=== PATIENT | female | born 1935 | race Caucasian/White ===

== ENCOUNTER 2018-09-24 10:54 | Inpatient (IN) | payer MEDICARE, BC ==
[2018-09-24] MEDS ORDERED: MORPHINE SULFATE 10 MG/ML INJ IV ONE (11:14)
--- NOTE | 2018-09-24 11:42 | ER Document Report ---
ED Hip Pain/Injury - General Chief Complaint: Hip Pain Stated Complaint: LEG PAIN Time Seen by Provider: 09/24/18 11:05 Primary Care Provider: YOGI FERREIRA PA-C [NO LOCAL MD] - Follow up as needed TRAVEL OUTSIDE OF THE [place] IN LAST 30 DAYS: No - HPI Notes: Patient is a 82-year-old female that presents to the emergency department for chief complaint of right hip pain after a fall. HPI provided by patient's daughter who is at bedside. Patient has vascular dementia and is a poor historian. 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 Patient has been having issues with ambulation and really can only stand and pivot with assistance. She has had 2 falls recently. Yesterday patient's daughter states she found her lying on the floor next to her bed. She did not have any apparent head injury or complaints of headache or vision changes. Patient was complaining of pain in her right hip and pelvic region. Daughter states she had x-rays that showed possibly acute on chronic right hip fracture. Daughter states she has no history of right hip fracture in the past. Patient has continued to have pain despite receiving Ultram last night. She was transferred to the ER today for further evaluation. Past Medical History: Vascular dementia, COPD, hypertension, GERD, history of intracranial hemorrhage Past Surgical History: Total hysterectomy Social History: Quit tobacco 30 years ago, denies alcohol use Family History: Reviewed and noncontributory for presenting illness Allergies: Reviewed, see documented allergy list. REVIEW OF SYSTEMS: CONSTITUTIONAL : No fever No chills No diaphoresis No recent illness EENT: No vision changes No congestion No sore throat CARDIOVASCULAR: No chest pain No palpitations RESPIRATORY: No shortness of breath No cough No difficulty breathing GASTROINTESTINAL: No abdominal pain No nausea No vomiting No diarrhea GENITOURINARY: No dysuria No hematuria No difficulty urinating MUSCULOSKELETAL: No back pain Right hip pain No arm pain SKIN: No rashes No lesions LYMPHATIC: No swollen, enlarged glands. NEUROLOGICAL: No lightheadedness No headache No weakness No paresthesias PSYCHIATRIC: No anxiety No depression PHYSICAL EXAMINATION: Vital signs reviewed, nursing noted reviewed. GENERAL: Well-appearing, well-nourished and in no acute distress. HEAD: Atraumatic, normocephalic. EYES: Eyes appear normal, extraocular movements intact, sclera anicteric, conjunctiva are normal. ENT: nares patent, oropharynx clear without exudates. Moist mucous membranes. NECK: Normal range of motion, supple without lymphadenopathy LUNGS: Breath sounds clear to auscultation bilaterally and equal. No wheezes rales or rhonchi. HEART: Regular rate and rhythm without murmurs ABDOMEN: Soft, nontender, normoactive bowel sounds. No rebound, guarding, or rigidity. No masses appreciated. EXTREMITIES: Pelvis stable, right hip tenderness to palpation and pain with range of motion and logroll, normal right knee and ankle exam, good range of motion, no pitting or edema. NEUROLOGICAL: No focal neurological deficits. Difficulty lifting right leg off the table secondary to pain. Normal sensation grossly. Normal strength and right dorsiflexion plantar flexion. Normal strength in left lower extremity. PSYCH: Normal mood, normal affect. SKIN: Warm, Dry, normal turgor, no rashes or lesions noted on exposed skin - Related Data Allergies/Adverse Reactions: No Known Allergies Allergy (Unverified 06/25/15 02:33) Past Medical History - Social History Smoking Status: Former Smoker Family History: Reviewed & Not Pertinent - Past Medical History Cardiac Medical History: Reports: Hx Hypertension Pulmonary Medical History: Reports: Hx COPD Traumatic Medical History: Reports: Hx Fractures - pelvic fx following a fall down steps in [place] Past Surgical History: Reports: Hx Hysterectomy - Immunizations Hx Pneumococcal Vaccination: 06/12/14 Physical Exam - Vital signs Vitals: Temp Pulse Resp BP Pulse Ox 97.7 F 70 16 160/56 H 93 09/24/18 11:08 09/24/18 11:08 09/24/18 11:08 09/24/18 11:08 09/24/18 11:08 Course - Re-evaluation Re-evalutation: 09/24/18 12:36 Vitals reviewed. Nursing notes reviewed. Patient's pain was improved after morphine. X-ray does show a subcapital right hip fracture. I discussed patient's fracture with Dr. To who will see her on consultation. Patient will be admitted to medicine for further management. Hip/Pelvis X-Ray 09/24/18 11:13 IMPRESSION: Subcapital fracture of the femoral neck. - Vital Signs Vital signs: Temp Pulse Resp BP Pulse Ox 97.7 F 70 16 160/56 H 93 09/24/18 11:08 09/24/18 11:08 09/24/18 11:08 09/24/18 11:08 09/24/18 11:08 - EKG Interpretation by Me Additional EKG results interpreted by me: 09/24/18 11:51 Interpreted by myself 1146: Normal sinus rhythm, rate 71, normal axis, no ectopy, no ST elevation Discharge - Discharge Clinical Impression: Subcapital fracture of hip Qualifiers: Encounter type: initial encounter Fracture type: closed Laterality: right Qualified Code(s): S72.011A - Unspecified intracapsular fracture of right femur, initial encounter for closed fracture Condition: Stable Disposition: ADMITTED INPATIENT Admitting Provider: Rafat (Hospitalist) Unit Admitted: Surgical Floor Referrals: YOGI FERREIRA PA-C [NO LOCAL MD] - Follow up as needed
--- NOTE | 2018-09-24 12:19 | RADIOLOGY REPORT (SQ) ---
EXAM DESCRIPTION: HIP RIGHT AP/LATERAL COMPLETED DATE/TIME: 09/24/2018 11:36 am REASON FOR STUDY: trauma COMPARISON: None. NUMBER OF VIEWS: Two views. TECHNIQUE: AP pelvis and additional frog-leg view of the right hip. LIMITATIONS: None. FINDINGS: MINERALIZATION: Normal. RIGHT HIP: There is an impacted subcapital fracture of the femoral neck. LEFT HIP: No fracture or dislocation. No worrisome bone lesions. PUBIS AND ISCHIUM: No fracture. PELVIS: No fracture. SACRUM: No fracture or dislocation. No worrisome bone lesions. LOWER LUMBAR SPINE: No fracture or dislocation. No worrisome bone lesions. No significant disc disea se. SOFT TISSUES: No findings. OTHER: No other significant finding. IMPRESSION: Subcapital fracture of the femoral neck. TECHNICAL DOCUMENTATION: JOB ID: [id number] [employer]- All Rights Reserved Reading location - IP/workstation name: [email or web address]
[2018-09-24 13:02] LABS: ABSOLUTE BASOPHILS # (AUTO) 0.1 10^3/uL (0.0-0.2); ABSOLUTE EOSINOPHILS # (AUTO) 0.2 10^3/uL (0.0-0.6); ABSOLUTE LYMPHOCYTES (AUTO) 1.4 10^3/uL (0.5-4.7); ABSOLUTE MONOCYTES (AUTO) 0.5 10^3/uL (0.1-1.4); ABSOLUTE NEUT (AUTO) 6.1 10^3/uL (1.7-8.2); BASOPHILS % (AUTO) 0.6 % (0-2); EOSINOPHILS % (AUTO) 2.9 % (0-6); HEMATOCRIT 35.4 % (36.0-47.0); HEMOGLOBIN 12.1 g/dL (12.0-15.5); LYMPHOCYTES % (AUTO) 16.8 % (13-45); MEAN CORPUSCULAR HEMOGLOBIN 30.8 pg (27.0-33.4); MEAN CORPUSCULAR HGB CONC 34.2 g/dL (32.0-36.0); MEAN CORPUSCULAR VOLUME 90 fl (80-97); MONOCYTES % (AUTO) 5.9 % (3-13); PLATELET COUNT 372 10^3/uL (150-450); RED BLOOD COUNT 3.93 10^6/uL (3.72-5.28); RED CELL DISTRIBUTION WIDTH 14.7 % (11.5-14.0); SEGMENTED NEUTROPHILS % (AUTO) 73.8 % (42-78); TOTAL CELLS COUNTED % (AUTO) 100 %; WHITE BLOOD COUNT 8.3 10^3/uL (4.0-10.5)
[2018-09-24] MEDS ORDERED: DEXTROSE 40% GEL 15 GM TUBE PO PRN ×2 (13:02)
[2018-09-24] MEDS ORDERED: DEXTROSE 50%-WATER 25 GM/50 ML DISP.SYRIN IV PRN ×2 (13:02)
[2018-09-24] MEDS ORDERED: GLUCAGON,HUMAN RECOMB 1 MG INJ SUBCUT PRN (13:02)
[2018-09-24 13:06] LABS: PROTHROMBIN TIME 13.7 SEC (11.4-15.4)
[2018-09-24] MEDS ORDERED: ALBUTEROL SULFATE 0.083% NEB 2.5 MG/3 ML AMPUL NEB PRN (13:08)
[2018-09-24] MEDS ORDERED: ALBUTEROL SULFATE HFA (90 MCG/PUFF) 200 PUFF/8.5 GM MDI IH PRN (13:08)
[2018-09-24] MEDS ORDERED: (PENDING PHARMACY ID) (Multivitamin [Multivitamins] 1 CAP) PO SCH (13:15)
[2018-09-24] MEDS ORDERED: BISACODYL PO SCH (13:15)
[2018-09-24] MEDS ORDERED: ATENOLOL PO SCH (13:15)
[2018-09-24 13:20] LABS: ANION GAP 9 (5-19); BLOOD UREA NITROGEN 22 mg/dL (7-20); CALCIUM 9.6 mg/dL (8.4-10.2); CARBON DIOXIDE 26 mmol/L (22-30); CHLORIDE 101 mmol/L (98-107); GLUCOSE 127 mg/dL (75-110); POTASSIUM 3.9 mmol/L (3.6-5.0); SODIUM 136.4 mmol/L (137-145)
--- NOTE | 2018-09-24 13:37 | PDOC H&P ---
History of Present Illness Admission Date/PCP: 09/24/18 12:41 ONI HERNANDEZ MD Patient complains of: History of fall and came with right hip fracture History of Present Illness: LEE ANN KHAN is a 82 year old female history of dementia,, hemorrhagic stroke, COPD came to the emergency room after multiple falls. She was found on the floor yesterday by . brought to the emergency room for further evaluation found to have a hip fracture. ER physician Dr. Witt discussed the case with Dr. To he agreed to do the ortho consult , requested hospitalist services to do the medical consult for admission. Went to see the pt and talk to the daughter who is at bedside she confirmed the history that patient has difficulty in ambulating after the strokes and had a couple of falls at [facility]. the daughter found her mom on the floor yesterday and brought to the emergency room here for further evaluation. In the ER wotk up shows right subcapital fracture of the femoral neck. Discussed the plan of care with the daughter she agreed her mom to be in the hospital for possible surgery. Patient is a DNR/DNI as per the family members. Patient denies any pain at the time of admission. Past Medical History Cardiac Medical History: Reports: Hypertension Pulmonary Medical History: Reports: Chronic Obstructive Pulmonary Disease (COPD) Neurological Medical History: Reports: Hemorrhagic CVA, Ischemic CVA Psychiatric Medical History: Reports: Dementia Past Surgical History Past Surgical History: Reports: Hysterectomy Social History Smoking Status: Former Smoker Frequency of Alcohol Use: Occasional Hx Recreational Drug Use: No Hx Prescription Drug Abuse: No - Advance Directive Resuscitation Status: Do Not Resuscitate Family History Family History: Reviewed & Not Pertinent Parental Family History Reviewed: Yes - father has a history of heart disease Children Family History Reviewed: Yes Sibling(s) Family History Reviewed.: Yes Medication/Allergy Home Medications: Albuterol Sulfate [Albuterol Sulfate 2.5mg/3 mL] 3 ml NEB Q6HP PRN 06/25/15 Albuterol Sulfate [Proair HFA] 2 puff IH PRN PRN 06/25/15 Atenolol 1 tab PO DAILY 06/25/15 Bisacodyl [Correctol] 1 tab PO Q2D 06/25/15 Budesonide/Formoterol Fumarate [Symbicort HFA 160-4.5 mcg Inhaler 6 gm] 1 puff IH QHS 06/25/15 Docusate Sodium [Colace 100 mg Capsule] 1 cap PO Q2D 06/25/15 Levocetirizine Dihydrochloride [Xyzal 5 mg Tablet] 1 tab PO QHS 06/25/15 Montelukast Sodium [Singulair 10 mg Tablet] 1 tab PO QHS 06/25/15 Multivitamin [Multivitamins] 1 cap PO DAILY 06/25/15 Omeprazole Magnesium [Prilosec Otc] 1 tab PO DAILY 06/25/15 Tiotropium [place] [Spiriva Handihaler 18 mcg/dose (30 Dose)] 1 inh IH DAILY 06/25/15 Azithromycin [Zithromax 250 mg Tablet] 500 mg PO DAILY #6 tab 06/27/15 Cefpodoxime Proxetil [Vantin 200 mg Tablet] 1 tab PO Q12 #20 tab 06/27/15 Prednisone [Deltasone 20 mg Tablet] 40 mg PO DAILY #12 tablet 06/27/15 Allergies/Adverse Reactions: No Known Allergies Allergy (Unverified 06/25/15 02:33) Review of Systems ROS unobtainable: Other - Most of the history obtained from the daughter at bedside. Constitutional: ABSENT: chills, fever(s), headache(s), weight gain, weight loss Eyes: ABSENT: visual disturbances Ears: ABSENT: hearing changes Cardiovascular: ABSENT: chest pain, dyspnea on exertion, edema, orthropnea, palpitations Respiratory: ABSENT: cough, hemoptysis Gastrointestinal: ABSENT: abdominal pain, constipation, diarrhea, hematemesis, hematochezia, nausea, vomiting Neurological: PRESENT: frequent falls. ABSENT: abnormal gait, abnormal speech, confusion, dizziness, focal weakness, syncope Psychiatric: ABSENT: anxiety, depression, homidical ideation, suicidal ideation Physical Exam Vital Signs: Temp Pulse Resp BP Pulse Ox 97.7 F 70 16 160/56 H 93 09/24/18 11:08 09/24/18 11:08 09/24/18 11:08 09/24/18 11:08 09/24/18 11:08 Intake & Output 09/23/18 09/24/18 09/25/18 06:59 06:59 06:59 Weight 122.5 kg General appearance: PRESENT: no acute distress Head exam: PRESENT: atraumatic Eye exam: PRESENT: PERRLA Mouth exam: PRESENT: moist, tongue midline Teeth exam: PRESENT: edentulous Neck exam: ABSENT: carotid bruit, JVD, lymphadenopathy, thyromegaly Respiratory exam: PRESENT: decreased breath sounds Cardiovascular exam: PRESENT: RRR. ABSENT: diastolic murmur, rubs, systolic murmur GI/Abdominal exam: PRESENT: normal bowel sounds, soft. ABSENT: distended, guarding, mass, organolmegaly, rebound, tenderness Extremities exam: PRESENT: full ROM. ABSENT: calf tenderness, clubbing, pedal edema Musculoskeletal exam: PRESENT: other - Patient is bedbound no hip rotation no shortening of the leg was seen. Neurological exam: PRESENT: alert, awake, oriented to person, oriented to place, oriented to time, oriented to situation, CN II-XII grossly intact. ABSENT: motor sensory deficit Psychiatric exam: PRESENT: appropriate affect, normal mood. ABSENT: homicidal ideation, suicidal ideation Results Laboratory Results: 09/24/18 12:29 09/24/18 12:29 WBC 8.3 RBC 3.93 Hgb 12.1 Hct 35.4 L MCV 90 MCH 30.8 MCHC 34.2 RDW 14.7 H Plt Count 372 Seg Neutrophils % 73.8 Lymphocytes % 16.8 Monocytes % 5.9 Eosinophils % 2.9 Basophils % 0.6 Absolute Neutrophils 6.1 Absolute Lymphocytes 1.4 Absolute Monocytes 0.5 Absolute Eosinophils 0.2 Absolute Basophils 0.1 Impressions: Hip/Pelvis X-Ray 09/24/18 11:13 IMPRESSION: Subcapital fracture of the femoral neck. Assessment and Plan - Diagnosis (1) Subcapital fracture of hip Qualifiers: Encounter type: initial encounter Fracture type: closed Laterality: right Qualified Code(s): S72.011A - Unspecified intracapsular fracture of right femur, initial encounter for closed fracture Is this a current diagnosis for this admission?: Yes Plan: 09/24/2016[age]-old female came from [facility] with history of fall and found to have a right hip fracture. Actually it is a subcapital fracture of the right femoral neck. Plan to put her on surgical floor as an inpatient. All the consult was requested. Started on IV morphine 1 mg every 4 as needed for pain. Patient is going to be bedbound. Started on GI prophylaxis. No DVT prophylaxis was initiated except for SCDs because of possible hip surgery either today or tomorrow. Patient CODE STATUS is DNR/DNI. Plan to restart her home medications. PT OT consult was requested social services counselor consult was requested for discharge planning. Patient EKG has sinus rhythm. Chest x-ray was pending, labs are pending. PT/INR is pending. Waiting for the labs and chest x-ray results are available before clearing the patient for surgery. (2) COPD (chronic obstructive pulmonary disease) Qualifiers: COPD type: unspecified COPD Qualified Code(s): J44.9 - Chronic obstructive pulmonary disease, unspecified Is this a current diagnosis for this admission?: No Plan: 09/24/2018-patient has history of COPD not on home oxygen pulse ox is 93% on room air. Plan to restart her home medications including albuterol inhaler albuterol nebulizations. (3) HTN (hypertension) Is this a current diagnosis for this admission?: No Plan: 09/24/2018-patient has history of hypertension she is on atenolol 1000 mg p.o. daily at home which was resumed during the hospital today. To start the patient on hydralazine 10 mg IV every 6 as needed. (4) Dementia Is this a current diagnosis for this admission?: No Plan: 09/24/2018-as per the family patient has a vascular dementia. Not on any dementia medications at snf. Plan is to closely monitor her mental sta tus during the hospital stay. (6) Alcohol use Is this a current diagnosis for this admission?: No Plan: 09/24/2018-patient's daughter given the history of hemorrhagic stroke and also ischemic stroke in the past. Recently patient was in [place] in the [facility] for massive hemorrhagic stroke. At that time she has right-sided weakness that weakness was resolved or. Of time. - Time Time Spent with patient: 25-34 minutes Medications reviewed and adjusted accordingly: Yes Anticipated discharge: SNF
--- NOTE | 2018-09-24 13:53 | ADVANCED CARE ---
- Diagnosis (1) Subcapital fracture of hip Diagnosis Current: Yes (2) COPD (chronic obstructive pulmonary disease) Diagnosis Current: No (3) HTN (hypertension) Diagnosis Current: No (4) Dementia Diagnosis Current: No (5) History of stroke Diagnosis Current: No (6) Alcohol use Diagnosis Current: No Resuscitation Status: Do Not Resuscitate Discussion: Discussed the plan of care with the daughter once patient is stable she is thinking about taking her mom home and she will provide the care at home. Care Planning Goals: Patient came in with a fall and dry. Hip fracture possible surgery while she was here once he is stable enough to be discharged she will go home on daughter will be there taking care of the patient will arrange for home health and physical therapy as an outpatient. Document(s) Completed: Patient is a DNR/DNI. Family brought to the documentation with them. Time Spent: Spent more than 20 minutes.
--- NOTE | 2018-09-24 14:47 | RADIOLOGY REPORT (SQ) ---
EXAM DESCRIPTION: CHEST SINGLE VIEW COMPLETED DATE/TIME: 09/24/2018 1:40 pm REASON FOR STUDY: shortness of breath COMPARISON: 06/27/2015 EXAM PARAMETERS: NUMBER OF VIEWS: One view. TECHNIQUE: Single frontal radiographic view of the chest acquired. RADIATION DOSE: NA LIMITATIONS: None. FINDINGS: LUNGS AND PLEURA: No opacities, masses or pneumothorax. No pleural effusion. MEDIASTINUM AND HILAR STRUCTURES: No masses. Contour normal. HEART AND VASCULAR STRUCTURES: Heart normal in size. Normal vasculature. BONES: No acute findings. HARDWARE: None in the chest. OTHER: No other significant finding. IMPRESSION: NO ACUTE RADIOGRAPHIC FINDING IN THE CHEST. TECHNICAL DOCUMENTATION: JOB ID: [id number] [employer]- All Rights Reserved Reading location - IP/workstation name: [email or web address]
[2018-09-24 15:13] LABS: APPEARANCE,URINE SLIGHTLY-CLOUDY; BILIRUBIN,URINE NEGATIVE (NEGATIVE); GLUCOSE, URINE NEGATIVE (NEGATIVE); KETONES,URINE NEGATIVE (NEGATIVE); LEUKOCYTE ESTERASE,URINE TRACE (NEGATIVE); NITRITE,URINE POSITIVE (NEGATIVE); PROTEIN,URINE NEGATIVE (NEGATIVE); URINE SPECIFIC GRAVITY 1.023; UROBILINOGEN,URINE NEGATIVE mg/dL (<2.0)
[2018-09-24 15:15] LABS: COLOR,URINE YELLOW
[2018-09-24] MEDS: MORPHINE SULFATE 10 MG/ML INJ IV PRN (16:48)
[2018-09-24] MEDS: ATENOLOL 50 MG TABLET PO SCH (16:50)
[2018-09-24] MEDS: FAMOTIDINE 20 MG TABLET PO SCH ×2 (16:50→21:59)
--- NOTE | 2018-09-24 20:04 | EKG REPORT ---
SEVERITY:- NORMAL ECG - SINUS RHYTHM : Confirmed by: Kiersten Copeland MD 24-Sep-2018 20:03:07
[2018-09-24] MEDS: CETIRIZINE 5 MG TABLET PO SCH (21:59)
[2018-09-24] MEDS: MONTELUKAST SODIUM 10 MG TABLET PO SCH (21:59)
[2018-09-24] MEDS: FLUTICASONE/VILANTEROL 200-25 MCG/DOSE IH SCH (22:00)
[2018-09-24] MEDS ORDERED: LEVOCETIRIZINE DIHYDROCHLORIDE PO SCH (22:00)
[2018-09-24] MEDS ORDERED: (PENDING PHARMACY ID) (Budesonide/Formoterol Fumarate 1 PUFF) IH SCH (22:00)
--- NOTE | 2018-09-25 06:43 | PDOC CONSULTATION ---
Consultation Consult Date: 09/25/18 Consult reason:: Right femoral neck fracture History of Present Illness Admission Date/PCP: 09/24/18 12:41 ONI HERNANDEZ MD History of Present Illness: LEE ANN KHAN is a 82 year old female Patient is an 82-year-old white female household ambulator who fell and sustained a right hip injury. She is brought to the emergency room where a right valgus impacted femoral neck fracture was identified radiographically. Patient is admitted to the hospital service and orthopedics consulted for fracture management. Past Medical History Cardiac Medical History: Reports: Hypertension Pulmonary Medical History: Reports: Chronic Obstructive Pulmonary Disease (COPD) Neurological Medical History: Reports: Hemorrhagic CVA, Ischemic CVA Psychiatric Medical History: Reports: Dementia Past Surgical History Past Surgical History: Reports: Hysterectomy Social History Information Source: Patient, [facility] Records Smoking Status: Former Smoker Frequency of Alcohol Use: Occasional Hx Recreational Drug Use: No Hx Prescription Drug Abuse: No - Advance Directive Resuscitation Status: Do Not Resuscitate Family History Family History: Reviewed & Not Pertinent Parental Family History Reviewed: No Children Family History Reviewed: No Sibling(s) Family History Reviewed.: No Medication/Allergy Home Medications: Acetaminophen [Tylenol 325 mg Tablet] 650 mg PO Q6HP PRN 09/24/18 Albuterol Sulfate [Ventolin 0.042% Neb 1.25 mg/3 ml Ampul] 1.25 mg NEB RTQ4HP PRN 09/24/18 Amlodipine Besylate [Norvasc 10 mg Tablet] 10 mg PO DAILY 09/24/18 Atenolol [Tenormin 50 mg Tablet] 50 mg PO Q12 09/24/18 Docusate Sodium [Colace 100 mg Capsule] 200 mg PO Q12 09/24/18 Fluticasone/Salmeterol [Advair 250-50 Diskus 14 Dose/Diskus] 1 inh IH Q12 09/24/18 Hydralazine HCl [Apresoline 10 mg Tablet] 20 mg PO Q8 09/24/18 Pantoprazole Sodium [Protonix [address] Tablet] 40 mg PO Q6AM 09/24/18 Polyethylene Glycol 3350 [Miralax Powder 17 gm/Packet] 1 packet PO Q12 09/24/18 Potassium Chloride [Klor-Con M10] 10 meq PO DAILY 09/24/18 Sennosides [Senna] 17.2 mg PO QHS 09/24/18 Tramadol HCl [Ultram 50 mg Tablet] 50 mg PO Q6HP PRN 09/24/18 Umeclidinium [place] [Incruse Ellipta] 1 puff IH DAILY 09/24/18 Allergies/Adverse Reactions: No Known Allergies Allergy (Unverified 06/25/15 02:33) Review of Systems ROS unobtainable: Due to mental status Physical Exam Vital Signs: Temp Pulse Resp BP Pulse Ox 36.6 C 63 18 150/60 H 95 09/24/18 23:59 09/24/18 23:59 09/24/18 23:59 09/24/18 23:59 09/25/18 04:00 Pulse Oximeter Continuous Start: 09/24/18 13:02 Freq: RTQ4 Status: Active Protocol: Document 09/25/18 04:00 [facility] (Rec: 09/25/18 04:12 [facility] [id number]) Pulse Oximetry Assessment Oxygen Saturation (92-100) 95 Oxygen Delivery Method Room Air Equipment Usage Equipment in Use Continuous Pulse Oximeter 24 Hour Charge Charge Now Continuous SpO2 Machine # 1 Intake & Output 09/23/18 09/24/18 09/25/18 06:59 06:59 06:59 Intake Total 110 Output Total 200 Balance -90 Weight 53.5 kg Physical Exam: The patient is an elderly white disheveled appearing female lying in hospital bed. She does respond to verbal stimuli but with inappropriate responses. General appearance: PRESENT: no acute distress, mild distress Head exam: PRESENT: normocephalic Respiratory exam: PRESENT: unlabored Cardiovascular exam: PRESENT: RRR Pulses: PRESENT: +1 pedal pulses bilateral Vascular exam: PRESENT: normal capillary refill GI/Abdominal exam: PRESENT: soft Rectal exam: PRESENT: deferred Extremities exam: PRESENT: other - Painful passive range of motion of right lower extremity. Leg lengths are equal. His brisk capillary refill. Neurological exam: PRESENT: awake Skin exam: PRESENT: dry, intact, warm. ABSENT: cyanosis, rash Results Laboratory Results: 09/24/18 12:29 09/24/18 12:29 09/24/18 09/24/18 09/24/18 12:29 12:29 14:37 WBC 8.3 RBC 3.93 Hgb 12.1 Hct 35.4 L MCV 90 MCH 30.8 MCHC 34.2 RDW 14.7 H Plt Count 372 Seg Neutrophils % 73.8 Lymphocytes % 16.8 Monocytes % 5.9 Eosinophils % 2.9 Basophils % 0.6 Absolute Neutrophils 6.1 Absolute Lymphocytes 1.4 Absolute Monocytes 0.5 Absolute Eosinophils 0.2 Absolute Basophils 0.1 Sodium 136.4 L Potassium 3.9 Chloride 101 Carbon Dioxide 26 Anion Gap 9 BUN 22 H Creatinine 0.59 Est GFR ( Amer) > 60 Est GFR (Non-Af Amer) > 60 Glucose 127 H Calcium 9.6 Urine Color YELLOW Urine Appearance SLIGHTLY-CLOUDY Urine pH 5.0 Ur Specific [place] 1.023 Urine Protein NEGATIVE Urine Glucose (UA) NEGATIVE Urine Ketones NEGATIVE Urine Blood NEGATIVE Urine Nitrite POSITIVE H Ur Leukocyte Esterase TRACE H Urine WBC (Auto) 57 Urine RBC (Auto) 116 Impressions: Chest X-Ray 09/24/18 00:00 IMPRESSION: NO ACUTE RADIOGRAPHIC FINDING IN THE CHEST. Hip/Pelvis X-Ray 09/24/18 11:13 IMPRESSION: Subcapital fracture of the femoral neck. Status: Imported from PACS Assessment & Plan - Diagnosis (1) Subcapital fracture of hip Qualifiers: Encounter type: initial encounter Fracture type: closed Laterality: right Qualified Code(s): S72.011A - Unspecified intracapsular fracture of right femur, initial encounter for closed fracture Is this a current diagnosis for this admission?: Yes Plan: 82-year-old white female with a right valgus impacted femoral neck fracture. I think the patient would best served with percutaneous pinning. This is a procedure that can be performed under local MAC anesthesia with minimal blood loss and less than 30 minutes. The patient will need to be protected in terms of weightbearing for 6 weeks thereafter. The patient has been placed on the operative schedule for MondaySeptember 26. - Time Time Spent: 50 to 70 Minutes Anticipated discharge: SNF Within: Other
[2018-09-25 07:13] LABS: ABSOLUTE BASOPHILS # (AUTO) 0.1 10^3/uL (0.0-0.2); ABSOLUTE EOSINOPHILS # (AUTO) 0.6 10^3/uL (0.0-0.6); ABSOLUTE LYMPHOCYTES (AUTO) 1.6 10^3/uL (0.5-4.7); ABSOLUTE MONOCYTES (AUTO) 0.6 10^3/uL (0.1-1.4); ABSOLUTE NEUT (AUTO) 5.4 10^3/uL (1.7-8.2); BASOPHILS % (AUTO) 0.8 % (0-2); EOSINOPHILS % (AUTO) 7.1 % (0-6); HEMATOCRIT 35.8 % (36.0-47.0); HEMOGLOBIN 12.1 g/dL (12.0-15.5); LYMPHOCYTES % (AUTO) 19.3 % (13-45); MEAN CORPUSCULAR HEMOGLOBIN 30.2 pg (27.0-33.4); MEAN CORPUSCULAR HGB CONC 33.9 g/dL (32.0-36.0); MEAN CORPUSCULAR VOLUME 89 fl (80-97); MONOCYTES % (AUTO) 7.9 % (3-13); PLATELET COUNT 352 10^3/uL (150-450); RED BLOOD COUNT 4.02 10^6/uL (3.72-5.28); RED CELL DISTRIBUTION WIDTH 14.7 % (11.5-14.0); SEGMENTED NEUTROPHILS % (AUTO) 64.9 % (42-78); TOTAL CELLS COUNTED % (AUTO) 100 %; WHITE BLOOD COUNT 8.3 10^3/uL (4.0-10.5)
[2018-09-25 07:43] LABS: ALANINE AMINOTRANSFERASE 16 U/L (9-52); ALBUMIN 3.5 g/dL (3.5-5.0); ALKALINE PHOSPHATASE 93 U/L (38-126); ANION GAP 7 (5-19); ASPARTATE AMINO TRANSFERASE 14 U/L (14-36); BILIRUBIN,DIRECT 0.2 mg/dL (0.0-0.4); BILIRUBIN,TOTAL 0.5 mg/dL (0.2-1.3); BLOOD UREA NITROGEN 18 mg/dL (7-20); CALCIUM 9.9 mg/dL (8.4-10.2); CARBON DIOXIDE 24 mmol/L (22-30); CHLORIDE 103 mmol/L (98-107); GLUCOSE 85 mg/dL (75-110); POTASSIUM 4.1 mmol/L (3.6-5.0); SODIUM 134.4 mmol/L (137-145); TOTAL PROTEIN 6.4 g/dL (6.3-8.2)
[2018-09-25] MEDS: MORPHINE SULFATE 10 MG/ML INJ IV PRN ×2 (08:23→18:30)
[2018-09-25] MEDS ORDERED: RINGERS SOLUTION,LACTATED 1,000 ML IV PRN (09:16)
[2018-09-25] MEDS ORDERED: CEFAZOLIN 2 GM/D5W RTU 2 GM/50 ML RTUPB IV PRN (09:16)
[2018-09-25] MEDS: FAMOTIDINE 20 MG TABLET PO SCH ×2 (11:38→23:07)
[2018-09-25] MEDS: BISACODYL 5 MG TABEC PO SCH (11:38)
[2018-09-25] MEDS: MULTIVITAMIN TABLET PO SCH (11:38)
[2018-09-25] MEDS: TIOTROPIUM BROMIDE DPI 5 CAP/KIT (18 MCG/CAP) IH SCH ×2 (11:41→11:42)
[2018-09-25] MEDS ORDERED: ALBUTEROL SULFATE 0.042% NEB (1.25 MG/3 ML) AMPUL NEB PRN (12:42)
[2018-09-25] MEDS ORDERED: (PENDING PHARMACY ID) (Potassium Chloride [Klor-Con M10] 10 MEQ) PO SCH (12:45)
[2018-09-25] MEDS ORDERED: (PENDING PHARMACY ID) (Fluticasone/Salmeterol 1 INH) IH SCH (12:45)
[2018-09-25] MEDS: ATENOLOL 50 MG TABLET PO SCH ×3 (14:31→23:08)
--- NOTE | 2018-09-25 15:22 | PDOC PROGRESS REPORT ---
Subjective Progress Note for:: 09/25/18 Subjective:: 82 year old female history of dementia,, hemorrhagic stroke, COPD came to the emergency room after multiple falls. She was found on the floor yesterday by . brought to the emergency room for further evaluation found to have a hip fracture. ER physician Dr. Witt discussed the case with Dr. To he agreed to do the ortho consult , requested hospitalist services to do the medical consult for admission. Went to see the pt and talk to the daughter who is at bedside she confirmed the history that patient has difficulty in ambulating after the strokes and had a couple of falls at [facility]. the daughter found her mom on the floor yesterday and brought to the emergency room here for further evaluation. In the ER wotk up shows right subcapital fracture of the femoral neck. Discussed the plan of care with the daughter she agreed her mom to be in the hospital for possible surgery. Patient is a DNR/DNI as per the family members. Patient denies any pain at the time of admission. 09/25/[id number]-mtsl-old female with multiple medical problems admitted after history of fall found to have right hip fracture. All the consult was done patient probably go to surgery tomorrow. PT OT consult was requested social media marketer consult was requested. Patient is DNR/DNI. Comfortably in the bed communicating well denies any pain. Reason For Visit: SUBCAPITAL FRACTURE OF HIP Physical Exam Vital Signs: Temp Pulse Resp BP Pulse Ox 97.5 F 66 16 146/57 H 92 09/25/18 11:27 09/25/18 11:27 09/25/18 07:21 09/25/18 11:27 09/25/18 11:43 Pulse Oximeter Continuous Start: 09/24/18 13:02 Freq: RTQ4 Status: Active Protocol: Document 09/25/18 11:43 [facility] (Rec: 09/25/18 11:43 [facility] [id number]) Pulse Oximetry Assessment Oxygen Saturation (92-100) 92 Oxygen Delivery Method Room Air Fraction of Inspired Oxygen (FIO2) 21 Equipment Usage Equipment in Use Continuous SpO2 Machine # N 1 Intake & Output 09/24/18 09/25/18 09/26/18 06:59 06:59 06:59 Intake Total 110 Output Total 200 Balance -90 Weight 53.5 kg General appearance: PRESENT: no acute distress, thin Head exam: PRESENT: atraumatic Eye exam: PRESENT: PERRLA Ear exam: PRESENT: normal external ear exam Neck exam: ABSENT: carotid bruit, JVD, lymphadenopathy, thyromegaly Respiratory exam: PRESENT: clear to auscultation evelyn. ABSENT: rales, rhonchi, wheezes Cardiovascular exam: PRESENT: RRR. ABSENT: diastolic murmur, rubs, systolic murmur GI/Abdominal exam: PRESENT: normal bowel sounds, soft. ABSENT: distended, guarding, mass, organolmegaly, rebound, tenderness Extremities exam: PRESENT: full ROM. ABSENT: calf tenderness, clubbing, pedal edema Neurological exam: PRESENT: alert, awake, oriented to person, oriented to place, oriented to time, oriented to situation, CN II-XII grossly intact. ABSENT: motor sensory deficit Psychiatric exam: PRESENT: appropriate affect, normal mood. ABSENT: homicidal ideation, suicidal ideation Results Laboratory Results: 09/25/18 06:24 09/25/18 06:24 09/24/18 09/25/18 09/25/18 14:37 06:24 06:24 WBC 8.3 RBC 4.02 Hgb 12.1 Hct 35.8 L MCV 89 MCH 30.2 MCHC 33.9 RDW 14.7 H Plt Count 352 Seg Neutrophils % 64.9 Lymphocytes % 19.3 Monocytes % 7.9 Eosinophils % 7.1 H Basophils % 0.8 Absolute Neutrophils 5.4 Absolute Lymphocytes 1.6 Absolute Monocytes 0.6 Absolute Eosinophils 0.6 Absolute Basophils 0.1 Sodium 134.4 L Potassium 4.1 Chloride 103 Carbon Dioxide 24 Anion Gap 7 BUN 18 Creatinine 0.60 Est GFR ( Amer) > 60 Est GFR (Non-Af Amer) > 60 Glucose 85 Calcium 9.9 Magnesium 1.8 Total Bilirubin 0.5 AST 14 ALT 16 Alkaline Phosphatase 93 Total Protein 6.4 Albumin 3.5 Urine Color YELLOW Urine Appearance SLIGHTLY-CLOUDY Urine pH 5.0 Ur Specific Emmett 1.023 Urine Protein NEGATIVE Urine Glucose (UA) NEGATIVE Urine Ketones NEGATIVE Urine Blood NEGATIVE Urine Nitrite POSITIVE H Ur Leukocyte Esterase TRACE H Urine WBC (Auto) 57 Urine RBC (Auto) 116 Impressions: Chest X-Ray 09/24/18 00:00 IMPRESSION: NO ACUTE RADIOGRAPHIC FINDING IN THE CHEST. Hip/Pelvis X-Ray 09/24/18 11:13 IMPRESSION: Subcapital fracture of the femoral neck. Assessment and Plan - Diagnosis (1) Subcapital fracture of hip Qualifiers: Encounter type: initial encounter Fracture type: closed Laterality: right Qualified Code(s): S72.011A - Unspecified intracapsular fracture of right femur, initial encounter for closed fracture Is this a current diagnosis for this admission?: Yes Plan: 09/24/2018-82 year-old female came from [facility] with history of fall and found to have a right hip fracture. Actually it is a subcapital fracture of the right femoral neck. Plan to put her on surgical floor as an inpatient. All the consult was requested. Started on IV morphine 1 mg every 4 as needed for pain. Patient is going to be bedbound. Started on GI prophylaxis. No DVT prophylaxis was initiated except for SCDs because of possible hip surgery either today or tomorrow. Patient CODE STATUS is DNR/DNI. Plan to restart her home medication s. PT OT consult was requested social media marketer consult was requested for discharge planning. Patient EKG has sinus rhythm. Chest x-ray was pending, labs are pending. PT/INR is pending. Waiting for the labs and chest x-ray results are available before clearing the patient for surgery. 09/25/[id number]-wuwl-old [facility] admitted after history of fall had a right hip fracture. For the consult was done patient is going for surgery tomorrow. PT OT consult was requested and social media marketer consult was requested for possible placement. I spoke to the daughter yesterday she prefers to take her home when she says she can take care of her mother at home. Patient may need home health and home PT. (2) COPD (chronic obstructive pulmonary disease) Qualifiers: COPD type: unspecified COPD Qualified Code(s): J44.9 - Chronic obstructive pulmonary disease, unspecified Is this a current diagnosis for this admission?: No Plan: 09/24/2018-patient has history of COPD not on home oxygen pulse ox is 93% on room air. Plan to restart her home medications including albuterol inhaler albuterol nebulizations. 09/25/[id number]-wgbq-old female with history of COPD not on home oxygen pulse ox is 92% on room air. Presently on albuterol inhaler, albuterol nebulizations. Plan is to continue the present management. (3) HTN (hypertension) Is this a current diagnosis for this admission?: No Plan: 09/24/2018-patient has history of hypertension she is on atenolol 100 milligrams p.o. daily at home which was resumed during the hospital today. To start the patient on hydralazine 10 mg IV every 6 as needed. 09/25/2018-patient blood pressure today is 146/57 pressure is stable. Presently on atenolol 100 mg p.o. daily. plan is to continue the present management. (4) Dementia Is this a current diagnosis for this admission?: No Plan: 09/24/2018-as per the family patient has a vascular dementia. Not on any dementia medications at prison. Plan is to closely monitor her mental status during the hospital stay. 09/25/2018-patient has history of vascular dementia alert and awake communicating okay no signs of any anxiety and agitation. (5) History of stroke Is this a current diagnosis for this admission?: No Plan: 09/25/2018 family is giving the history of stroke with resolution of the symptoms.09/24/2018-patient's daughter given the history of hemorrhagic stroke and also ischemic stroke in the past. Recently patient was in [place] in the [facility] for massive hemorrhagic stroke. At that time she has right-sided weakness that weakness was resolved or. Of time. (6) Alcohol use Is this a current diagnosis for this admission?: No - Time Time Spent with patient: 15-24 minutes Medications reviewed and adjusted accordingly: Yes Anticipated discharge: SNF
[2018-09-25] MEDS: DOCUSATE SODIUM 100 MG CAPSULE PO SCH ×2 (17:27→23:07)
[2018-09-25] MEDS: POLYETHYLENE GLYCOL 3350 POWDER 17 GM/1 PACKET PO SCH ×2 (17:27→23:07)
[2018-09-25] MEDS: AMLODIPINE BESYLATE 10 MG TABLET PO SCH (17:27)
[2018-09-25] MEDS: POTASSIUM CHLORIDE 10 MEQ CAPSULE.ER PO SCH (17:29)
[2018-09-25] MEDS: SENNOSIDES/DOCUSATE 8.6-50 MG 1 EACH TABLET PO SCH ×2 (17:29→23:07)
[2018-09-25] MEDS: PANTOPRAZOLE SODIUM 40 MG TABLET.DR PO SCH (17:31)
[2018-09-25] MEDS: HYDRALAZINE HCL 10 MG TABLET PO SCH ×2 (17:31→23:05)
[2018-09-25] MEDS ORDERED: NORMAL SALINE 1000 ML 1,000 ML IV ONE (20:30)
[2018-09-25] MEDS ORDERED: (PENDING PHARMACY ID) (Sennosides [Senna] 17.2 MG) PO SCH (22:00)
[2018-09-25] MEDS: FLUTICASONE/VILANTEROL 200-25 MCG/DOSE IH SCH (23:06)
[2018-09-25] MEDS: MONTELUKAST SODIUM 10 MG TABLET PO SCH (23:07)
[2018-09-25] MEDS: CETIRIZINE 5 MG TABLET PO SCH (23:08)
[2018-09-25] MEDS: NORMAL SALINE 1000 ML 1,000 ML IV PRN (23:09)
[2018-09-26] MEDS ORDERED: CEFAZOLIN 2 GM/D5W RTU 2 GM/50 ML RTUPB IV PRN (05:00)
[2018-09-26] MEDS: PANTOPRAZOLE SODIUM 40 MG TABLET.DR PO SCH (05:09)
[2018-09-26] MEDS: HYDRALAZINE HCL 10 MG TABLET PO SCH ×2 (05:09→15:47)
[2018-09-26 07:07] LABS: ABSOLUTE BASOPHILS # (AUTO) 0.1 10^3/uL (0.0-0.2); ABSOLUTE EOSINOPHILS # (AUTO) 0.2 10^3/uL (0.0-0.6); ABSOLUTE LYMPHOCYTES (AUTO) 1.4 10^3/uL (0.5-4.7); ABSOLUTE MONOCYTES (AUTO) 0.7 10^3/uL (0.1-1.4); ABSOLUTE NEUT (AUTO) 6.8 10^3/uL (1.7-8.2); BASOPHILS % (AUTO) 0.6 % (0-2); EOSINOPHILS % (AUTO) 2.2 % (0-6); HEMATOCRIT 32.3 % (36.0-47.0); HEMOGLOBIN 11.1 g/dL (12.0-15.5); LYMPHOCYTES % (AUTO) 15.4 % (13-45); MEAN CORPUSCULAR HEMOGLOBIN 30.7 pg (27.0-33.4); MEAN CORPUSCULAR HGB CONC 34.2 g/dL (32.0-36.0); MEAN CORPUSCULAR VOLUME 90 fl (80-97); MONOCYTES % (AUTO) 7.3 % (3-13); PLATELET COUNT 316 10^3/uL (150-450); RED BLOOD COUNT 3.61 10^6/uL (3.72-5.28); RED CELL DISTRIBUTION WIDTH 14.7 % (11.5-14.0); SEGMENTED NEUTROPHILS % (AUTO) 74.5 % (42-78); TOTAL CELLS COUNTED % (AUTO) 100 %; WHITE BLOOD COUNT 9.2 10^3/uL (4.0-10.5)
[2018-09-26 07:36] LABS: ALANINE AMINOTRANSFERASE 11 U/L (9-52); ALKALINE PHOSPHATASE 80 U/L (38-126); ANION GAP 8 (5-19); ASPARTATE AMINO TRANSFERASE 13 U/L (14-36); BILIRUBIN,DIRECT 0.3 mg/dL (0.0-0.4); BILIRUBIN,TOTAL 0.4 mg/dL (0.2-1.3); BLOOD UREA NITROGEN 18 mg/dL (7-20); CALCIUM 8.8 mg/dL (8.4-10.2); CARBON DIOXIDE 20 mmol/L (22-30); CHLORIDE 108 mmol/L (98-107); GLUCOSE 103 mg/dL (75-110); POTASSIUM 4.1 mmol/L (3.6-5.0); SODIUM 135.7 mmol/L (137-145); TOTAL PROTEIN 5.2 g/dL (6.3-8.2)
[2018-09-26] MEDS: AMLODIPINE BESYLATE 10 MG TABLET PO SCH (09:11)
[2018-09-26] MEDS: ATENOLOL 50 MG TABLET PO SCH ×2 (09:12→09:14)
[2018-09-26] MEDS: POTASSIUM CHLORIDE 10 MEQ CAPSULE.ER PO SCH (09:13)
[2018-09-26] MEDS: TIOTROPIUM BROMIDE DPI 5 CAP/KIT (18 MCG/CAP) IH SCH (09:13)
[2018-09-26] MEDS: DOCUSATE SODIUM 100 MG CAPSULE PO SCH ×2 (09:13)
[2018-09-26] MEDS: FAMOTIDINE 20 MG TABLET PO SCH (09:13)
[2018-09-26] MEDS: POLYETHYLENE GLYCOL 3350 POWDER 17 GM/1 PACKET PO SCH (09:13)
[2018-09-26] MEDS: MULTIVITAMIN TABLET PO SCH (09:13)
[2018-09-26] MEDS: NORMAL SALINE 1000 ML 1,000 ML IV PRN (09:19)
[2018-09-26] MEDS ORDERED: BUPIVACAINE HCL 0.5%-EPI 1:200000 INJ/PF 30 ML VIAL ONE (10:10)
[2018-09-26] MEDS ORDERED: LIDOCAINE 1% INJ-PF (10 MG/ML) 30 ML SDV ONE (10:10)
[2018-09-26] MEDS ORDERED: MIDAZOLAM 2 MG/2 ML INJ ONE (10:10)
[2018-09-26] MEDS ORDERED: PROPOFOL INJ 200 MG/20 ML VIAL IV ONE (10:10)
[2018-09-26] MEDS ORDERED: ONDANSETRON HCL INJ/PF 4 MG/2 ML SDV ONE (10:10)
[2018-09-26] MEDS ORDERED: FENTANYL CITRATE INJ/PF 100 MCG/2 ML AMPUL ONE (10:10)
[2018-09-26] MEDS ORDERED: CEFAZOLIN 2 GM/D5W RTU 2 GM/50 ML RTUPB IV ONE (10:19)
[2018-09-26] MEDS ORDERED: KETAMINE HCL INJ 500 MG/10 ML VIAL ONE (10:33)
--- NOTE | 2018-09-26 11:36 | RADIOLOGY REPORT (SQ) ---
EXAM DESCRIPTION: NO CHG FLUORO; HIP IN OPERATING RM COMPLETED DATE/TIME: 09/26/2018 11:19 am REASON FOR STUDY: RIGHT HIP PINNING ASST WITH FLUORO IN OR COMPARISON: None. FLUOROSCOPY TIME: 0.2 minutes 2 images saved to PACS. TECHNIQUE: Intra-operative images acquired during surgical procedure to evaluate progress. NUMBER OF IMAGES: 2 LIMITATIONS: None. FINDINGS: Limited intraoperative images obtained to evaluate surgical progress of femoral neck pendi ng. Please see operative report for detailed description. IMPRESSION: IMAGE(S) OBTAINED DURING PROCEDURE. COMMENT: Quality ID [id number]: Final reports for procedures using fluoroscopy that document radiation exp osure indices, or exposure time and number of fluorographic images (if radiation exposure indices are not available) Please consult full operative report of the attending physician for description of the procedure. TECHNICAL DOCUMENTATION: JOB ID: [id number] [employer]- All Rights Reserved Reading location - IP/workstation name: [email or web address]
--- NOTE | 2018-09-26 11:36 | RADIOLOGY REPORT (SQ) ---
EXAM DESCRIPTION: NO CHG FLUORO; HIP IN OPERATING RM COMPLETED DATE/TIME: 09/26/2018 11:19 am REASON FOR STUDY: RIGHT HIP PINNING ASST WITH FLUORO IN OR COMPARISON: None. FLUOROSCOPY TIME: 0.2 minutes 2 images saved to PACS. TECHNIQUE: Intra-operative images acquired during surgical procedure to evaluate progress. NUMBER OF IMAGES: 2 LIMITATIONS: None. FINDINGS: Limited intraoperative images obtained to evaluate surgical progress of femoral neck pendi ng. Please see operative report for detailed description. IMPRESSION: IMAGE(S) OBTAINED DURING PROCEDURE. COMMENT: Quality ID [id number]: Final reports for procedures using fluoroscopy that document radiation exp osure indices, or exposure time and number of fluorographic images (if radiation exposure indices are not available) Please consult full operative report of the attending physician for description of the procedure. TECHNICAL DOCUMENTATION: JOB ID: [id number] [employer]- All Rights Reserved Reading location - IP/workstation name: [email or web address]
--- NOTE | 2018-09-26 14:05 | PDOC PROGRESS REPORT ---
Subjective Progress Note for:: 09/26/18 Subjective:: 82 year old female history of dementia,, hemorrhagic stroke, COPD came to the emergency room after multiple falls. She was found on the floor yesterday by . brought to the emergency room for further evaluation found to have a hip fracture. ER physician Dr. Witt discussed the case with Dr. To he agreed to do the ortho consult , requested hospitalist services to do the medical consult for admission. Went to see the pt and talk to the daughter who is at bedside she confirmed the history that patient has difficulty in ambulating after the strokes and had a couple of falls at [facility]. the daughter found her mom on the floor yesterday and brought to the emergency room here for further evaluation. In the ER wotk up shows right subcapital fracture of the femoral neck. Discussed the plan of care with the daughter she agreed her mom to be in the hospital for possible surgery. Patient is a DNR/DNI as per the family members. Patient denies any pain at the time of admission. 09/25/[id number]-xwhg-old female with multiple medical problems admitted after history of fall found to have right hip fracture. All the consult was done patient probably go to surgery tomorrow. PT OT consult was requested social studies teacher consult was requested. Patient is DNR/DNI. Comfortably in the bed communicating well denies any pain. 09/26/[id number]-jqhi-old female admitted with right hip fracture. Went for the procedure today. Comfortable in the bed sleeping. Family members at bedside. No concerns expressed by the family members. Reason For Visit: SUBCAPITAL FRACTURE OF HIP Physical Exam Vital Signs: Temp Pulse Resp BP Pulse Ox 98.3 F 70 14 118/42 L 95 09/26/18 12:03 09/26/18 12:03 09/26/18 12:03 09/26/18 12:03 09/26/18 13:54 Pulse Oximeter Continuous Start: 09/24/18 13:02 Freq: RTQ4 Status: Active Protocol: Document 09/26/18 13:54 [facility] (Rec: 09/26/18 13:54 [facility] [id number]) Pulse Oximetry Assessment Oxygen Saturation (92-100) 95 Oxygen Flow Rate (L/min) 2 Oxygen Delivery Method Nasal Cannula Fraction of Inspired Oxygen (FIO2) 28 Equipment Usage Equipment in Use Continuous SpO2 Machine # n1 Intake & Output 09/25/18 09/26/18 09/27/18 06:59 06:59 06:59 Intake Total 110 1740 1300 Output Total 200 250 205 Balance -90 1490 1095 Weight 53.5 kg 54.2 kg General appearance: PRESENT: no acute distress, thin Head exam: PRESENT: atraumatic Eye exam: PRESENT: PERRLA Neck exam: ABSENT: carotid bruit, JVD, lymphadenopathy, thyromegaly Respiratory exam: PRESENT: clear to auscultation evelyn. ABSENT: rales, rhonchi, wheezes Cardiovascular exam: PRESENT: systolic murmur, tachycardia GI/Abdominal exam: PRESENT: normal bowel sounds, soft. ABSENT: distended, guarding, mass, organolmegaly, rebound, tenderness Extremities exam: PRESENT: full ROM. ABSENT: calf tenderness, clubbing, pedal edema Neurological exam: PRESENT: other - pt is under sedation unable to do neuro exam Psychiatric exam: PRESENT: appropriate affect, normal mood. ABSENT: homicidal ideation, suicidal ideation Results Laboratory Results: 09/26/18 06:20 09/26/18 06:20 09/26/18 09/26/18 06:20 06:20 WBC 9.2 RBC 3.61 L Hgb 11.1 L Hct 32.3 L MCV 90 MCH 30.7 MCHC 34.2 RDW 14.7 H Plt Count 316 Seg Neutrophils % 74.5 Lymphocytes % 15.4 Monocytes % 7.3 Eosinophils % 2.2 Basophils % 0.6 Absolute Neutrophils 6.8 Absolute Lymphocytes 1.4 Absolute Monocytes 0.7 Absolute Eosinophils 0.2 Absolute Basophils 0.1 Sodium 135.7 L Potassium 4.1 Chloride 108 H Carbon Dioxide 20 L Anion Gap 8 BUN 18 Creatinine 0.53 Est GFR ( Amer) > 60 Est GFR (Non-Af Amer) > 60 Glucose 103 Calcium 8.8 Magnesium 1.8 Total Bilirubin 0.4 AST 13 L ALT 11 Alkaline Phosphatase 80 Total Protein 5.2 L Albumin 3.0 L Impressions: Chest X-Ray 09/24/18 00:00 IMPRESSION: NO ACUTE RADIOGRAPHIC FINDING IN THE CHEST. Hip/Pelvis X-Ray 09/24/18 11:13 IMPRESSION: Subcapital fracture of the femoral neck. Fluoroscopy 09/26/18 00:00 IMPRESSION: IMAGE(S) OBTAINED DURING PROCEDURE. Hip X-Ray 09/26/18 00:00 IMPRESSION: IMAGE(S) OBTAINED DURING PROCEDURE. Assessment and Plan - Diagnosis (1) Subcapital fracture of hip Qualifiers: Encounter type: initial encounter Fracture type: closed Laterality: right Qualified Code(s): S72.011A - Unspecified intracapsular fracture of right femur, initial encounter for closed fracture Is this a current diagnosis for this admission?: Yes Plan: 09/24/2018-82 year-old female came from [facility] with history of fall and found to have a right hip fracture. Actually it is a subcapital fracture of the right femoral neck. Plan to put her on surgical floor as an inpatient. All the consult was requested. Started on IV morphine 1 mg every 4 as needed for pain. Patient is going to be bedbound. Started on GI prophylaxis. No DVT prophylaxis was initiated except for SCDs because of possible hip surgery either today or tomorrow. Patient CODE STATUS is DNR/DNI. Plan to restart her home medications. PT OT consult was requested social studies teacher consult was requested for discharge planning. Patient EKG has sinus rhythm. Chest x-ray was pending, labs are pending. PT/INR is pending. Waiting for the labs and chest x-ray results are available before clearing the patient for surgery. 09/25/[id number]-eupx-old [facility] after history of fall had a right hip fracture. For the consult was done patient is going for surgery tomorrow. PT OT consult was requested and social studies teacher consult was requested for possible placement. I spoke to the daughter yesterday she prefers to take her home when she says she can take care of her mother at home. Patient may need home health and home PT. 09/26/[id number]-bqom-old female admitted for right hip fracture status post pinning. Today. Plan is to continue the present management as per ortho team. (2) COPD (chronic obstructive pulmonary disease) Qualifiers: COPD type: unspecified COPD Qualified Code(s): J44.9 - Chronic obstructive pulmonary disease, unspecified Is this a current diagnosis for this admission?: No Plan: 09/24/2018-patient has history of COPD not on home oxygen pulse ox is 93% on room air. Plan to restart her home medications including albuterol inhaler albuterol nebulizations. 09/25/[id number]-mzk female with history of COPD not on home oxygen pulse ox is 92% on room air. Presently on albuterol inhaler, albuterol nebulizations. Plan is to continue the present management. 09/26/2018-patient has history of COPD pulse ox is 94% on room air. Stable. Plan is to continue all of her inhaler albuterol nebulizations. (3) HTN (hypertension) Is this a current diagnosis for this admission?: No Plan: 09/24/2018-patient has history of hypertension she is on atenolol 100 milligrams p.o. daily at home which was resumed during the hospital today. To start the patient on hydralazine 10 mg IV every 6 as needed. 09/25/2018-patient blood pressure today is 146/57 pressure is stable. Presently on atenolol 100 mg p.o. daily. plan is to continue the present management. 09/26/2018-patient blood pressure today is 184/66. Presently on atenolol 100 mg p.o. daily, plan is to closely monitor her blood pressure. (4) Dementia Is this a current diagnosis for this admission?: No Plan: 09/24/2018-as per the family patient has a vascular dementia. Not [facility] any [facility] medications [facility]. Plan is to closely monitor her mental status during the hospital stay. 09/25/2018-patient has history of vascular dementia alert and awake communicating okay no signs of any anxiety and agitation. (5) History of stroke Is this a current diagnosis for this admission?: No Plan: 09/25/2018 family is giving the history of stroke with resolution of the symptoms.09/24/2018-patient's daughter given the history of hemorrhagic stroke and also ischemic stroke in the past. Recently patient was in [place] in the [facility] for massive hemorrhagic stroke. At that time she has right-sided weakness that weakness was resolved at that time - Time Time Spent with patient: 15-24 minutes Medications reviewed and adjusted accordingly: Yes Anticipated discharge: SNF
[2018-09-26] MEDS ORDERED: RINGERS SOLUTION,LACTATED 1,000 ML IV PRN (14:15)
[2018-09-26] MEDS: ASPIRIN 81 MG TABLET, ENT COATED PO SCH (15:48)
[2018-09-26] MEDS: FLUTICASONE/VILANTEROL 200-25 MCG/DOSE IH SCH (23:58)
[2018-09-27] MEDS: ATENOLOL 50 MG TABLET PO SCH ×3 (00:02→22:21)
[2018-09-27] MEDS: MONTELUKAST SODIUM 10 MG TABLET PO SCH ×2 (00:03→22:21)
[2018-09-27] MEDS: CETIRIZINE 5 MG TABLET PO SCH ×2 (00:03→22:21)
[2018-09-27] MEDS: HYDRALAZINE HCL 10 MG TABLET PO SCH ×4 (00:03→22:20)
[2018-09-27] MEDS: POLYETHYLENE GLYCOL 3350 POWDER 17 GM/1 PACKET PO SCH ×3 (00:04→22:21)
[2018-09-27] MEDS: FAMOTIDINE 20 MG TABLET PO SCH ×3 (00:04→22:21)
[2018-09-27] MEDS: SENNOSIDES/DOCUSATE 8.6-50 MG 1 EACH TABLET PO SCH ×2 (00:04→22:21)
[2018-09-27] MEDS: DOCUSATE SODIUM 100 MG CAPSULE PO SCH ×3 (00:04→22:21)
[2018-09-27] MEDS: ACETAMINOPHEN 325 MG TABLET PO PRN ×3 (00:07→22:21)
[2018-09-27] MEDS: PANTOPRAZOLE SODIUM 40 MG TABLET.DR PO SCH (06:05)
[2018-09-27] MEDS: TRAMADOL HCL 50 MG TABLET PO PRN (06:11)
[2018-09-27 06:31] LABS: HEMATOCRIT 32.6 % (36.0-47.0); HEMOGLOBIN 11.1 g/dL (12.0-15.5); MEAN CORPUSCULAR HEMOGLOBIN 30.2 pg (27.0-33.4); MEAN CORPUSCULAR VOLUME 89 fl (80-97); PLATELET COUNT 294 10^3/uL (150-450); RED BLOOD COUNT 3.66 10^6/uL (3.72-5.28); RED CELL DISTRIBUTION WIDTH 14.4 % (11.5-14.0); WHITE BLOOD COUNT 8.9 10^3/uL (4.0-10.5)
[2018-09-27 06:58] LABS: ANION GAP 10 (5-19); BLOOD UREA NITROGEN 14 mg/dL (7-20); CALCIUM 9.5 mg/dL (8.4-10.2); CARBON DIOXIDE 22 mmol/L (22-30); CHLORIDE 103 mmol/L (98-107); GLUCOSE 97 mg/dL (75-110); POTASSIUM 3.8 mmol/L (3.6-5.0); SODIUM 135.2 mmol/L (137-145)
--- NOTE | 2018-09-27 06:58 | PDOC PROGRESS REPORT ---
Subjective Progress Note for:: 09/27/18 Reason For Visit: SUBCAPITAL FRACTURE OF HIP 82-year-old white female now postop day 1 status post percutaneous fixation of a valgus impacted right femoral neck fracture. Patient less than cooperative this morning Physical Exam Vital Signs: Temp Pulse Resp BP Pulse Ox 36.6 C 81 16 147/84 H 94 09/26/18 23:53 09/26/18 23:53 09/26/18 23:53 09/26/18 23:53 09/27/18 04:00 Pulse Oximeter Continuous Start: 09/24/18 13:02 Freq: RTQ4 Status: Active Protocol: Document 09/27/18 04:00 [facility] (Rec: 09/27/18 04:22 [facility] [id number]) Pulse Oximetry Assessment Oxygen Saturation (92-100) 94 Oxygen Flow Rate (L/min) 2 Oxygen Delivery Method Nasal Cannula Fraction of Inspired Oxygen (FIO2) 28 Equipment Usage Equipment in Use Continuous SpO2 Machine # 1 Intake & Output 09/25/18 09/26/18 09/27/18 06:59 06:59 06:59 Intake Total 110 1740 2536 Output Total 200 250 205 Balance -90 1490 2331 Weight 53.5 kg 54.2 kg 55.5 kg General appearance: PRESENT: no acute distress, mild distress Head exam: PRESENT: normocephalic Respiratory exam: PRESENT: unlabored Cardiovascular exam: PRESENT: RRR Pulses: PRESENT: +1 pedal pulses bilateral Vascular exam: PRESENT: normal capillary refill GI/Abdominal exam: PRESENT: soft Rectal exam: PRESENT: deferred Musculoskeletal exam: PRESENT: other - Right hip dressing clean dry and intact. Leg lengths are equal. There is brisk capillary refill in each of the digits. Neurological exam: PRESENT: altered, awake Psychiatric exam: PRESENT: agitated Skin exam: PRESENT: dry, intact, warm. ABSENT: cyanosis, rash Results Laboratory Results: 09/27/18 05:55 09/26/18 09/26/18 09/27/18 06:20 06:20 05:55 WBC 9.2 8.9 RBC 3.61 L 3.66 L Hgb 11.1 L 11.1 L Hct 32.3 L 32.6 L MCV 90 89 MCH 30.7 30.2 MCHC 34.2 34.0 RDW 14.7 H 14.4 H Plt Count 316 294 Seg Neutrophils % 74.5 Lymphocytes % 15.4 Monocytes % 7.3 Eosinophils % 2.2 Basophils % 0.6 Absolute Neutrophils 6.8 Absolute Lymphocytes 1.4 Absolute Monocytes 0.7 Absolute Eosinophils 0.2 Absolute Basophils 0.1 Sodium 135.7 L Potassium 4.1 Chloride 108 H Carbon Dioxide 20 L Anion Gap 8 BUN 18 Creatinine 0.53 Est GFR ( Amer) > 60 Est GFR (Non-Af Amer) > 60 Glucose 103 Calcium 8.8 Magnesium 1.8 Total Bilirubin 0.4 AST 13 L ALT 11 Alkaline Phosphatase 80 Total Protein 5.2 L Albumin 3.0 L Impressions: Chest X-Ray 09/24/18 00:00 IMPRESSION: NO ACUTE RADIOGRAPHIC FINDING IN THE CHEST. Hip/Pelvis X-Ray 09/24/18 11:13 IMPRESSION: Subcapital fracture of the femoral neck. Fluoroscopy 09/26/18 00:00 IMPRESSION: IMAGE(S) OBTAINED DURING PROCEDURE. Hip X-Ray 09/26/18 00:00 IMPRESSION: IMAGE(S) OBTAINED DURING PROCEDURE. Status: Imported from PACS Assessment & Plan - Diagnosis (1) Subcapital fracture of hip Qualifiers: Encounter type: initial encounter Fracture type: closed Laterality: right Qualified Code(s): S72.011A - Unspecified intracapsular fracture of right femur, initial encounter for closed fracture Is this a current diagnosis for this admission?: Yes Plan: Patient to be mobilized with physical therapy on touchdown weightbearing restriction. Daughter who is a nurse practitioner is interested in having the patient placed in a care home facility selectively. - Time Time Spent with patient: 15-24 minutes Anticipated discharge: SNF Within: when bed available
[2018-09-27] MEDS: BISACODYL 5 MG TABEC PO SCH (10:49)
[2018-09-27] MEDS: AMLODIPINE BESYLATE 10 MG TABLET PO SCH (10:50)
[2018-09-27] MEDS: ASPIRIN 81 MG TABLET, ENT COATED PO SCH (10:50)
[2018-09-27] MEDS: POTASSIUM CHLORIDE 10 MEQ CAPSULE.ER PO SCH (10:50)
[2018-09-27] MEDS: MULTIVITAMIN TABLET PO SCH (10:50)
[2018-09-27] MEDS: TIOTROPIUM BROMIDE DPI 5 CAP/KIT (18 MCG/CAP) IH SCH (11:00)
--- NOTE | 2018-09-27 13:29 | PDOC PROGRESS REPORT ---
Subjective Progress Note for:: 09/27/18 Subjective:: 82 year old female history of dementia,, hemorrhagic stroke, COPD came to the emergency room after multiple falls. She was found on the floor yesterday by . brought to the emergency room for further evaluation found to have a hip fracture. ER physician Dr. Witt discussed the case with Dr. To he agreed to do the ortho consult , requested hospitalist services to do the medical consult for admission. Went to see the pt and talk to the daughter who is at bedside she confirmed the history that patient has difficulty in ambulating after the strokes and had a couple of falls at [facility]. the daughter found her mom on the floor yesterday and brought to the emergency room here for further evaluation. In the ER wotk up shows right subcapital fracture of the femoral neck. Discussed the plan of care with the daughter she agreed her mom to be in the hospital for possible surgery. Patient is a DNR/DNI as per the family members. Patient denies any pain at the time of admission. 09/25/[id number]-paau-old female with multiple medical problems admitted after history of fall found to have right hip fracture. All the consult was done patient probably go to surgery tomorrow. PT OT consult was requested aids social worker consult was requested. Patient is DNR/DNI. Comfortably in the bed communicating well denies any pain. 09/26/[id number]-xoiy-old female admitted with right hip fracture. Went for the procedure today. Comfortable in the bed sleeping. Family members at bedside. No concerns expressed by the family members. 09/27/2018-postop day 1. Patient is comfortably in the bed denies any pain. Denies any concerns. Daughter is at bedside she wants her mom to go to [facility] once stable. Reason For Visit: SUBCAPITAL FRACTURE OF HIP Physical Exam Vital Signs: Temp Pulse Resp BP Pulse Ox 97.3 F 58 L 16 121/58 L 90 L 09/27/18 11:42 09/27/18 11:42 09/27/18 11:42 09/27/18 11:42 09/27/18 12:39 Pulse Oximeter Continuous Start: 09/24/18 13:02 Freq: RTQ4 Status: Active Protocol: Document 09/27/18 12:39 [facility] (Rec: 09/27/18 12:39 [facility] [id number]) Pulse Oximetry Assessment Oxygen Saturation (92-100) 90 Oxygen Delivery Method Room Air Fraction of Inspired Oxygen (FIO2) 21 Equipment Usage Equipment in Use Continuous SpO2 Machine # N 1 Intake & Output 09/26/18 09/27/18 09/28/18 06:59 06:59 06:59 Intake Total 1740 2536 Output Total 250 205 Balance 1490 2331 Weight 54.2 kg 55.5 kg General appearance: PRESENT: thin Head exam: PRESENT: atraumatic Eye exam: PRESENT: PERRLA Mouth exam: PRESENT: moist, tongue midline Neck exam: ABSENT: carotid bruit, JVD, lymphadenopathy, thyromegaly Respiratory exam: PRESENT: decreased breath sounds Cardiovascular exam: PRESENT: RRR. ABSENT: diastolic murmur, rubs, systolic murmur GI/Abdominal exam: PRESENT: normal bowel sounds, soft. ABSENT: distended, guarding, mass, organolmegaly, rebound, tenderness Extremities exam: PRESENT: full ROM. ABSENT: calf tenderness, clubbing, pedal edema Neurological exam: PRESENT: alert, awake, oriented to person, oriented to place, oriented to time, oriented to situation, CN II-XII grossly intact. ABSENT: motor sensory deficit Psychiatric exam: PRESENT: appropriate affect, normal mood. ABSENT: homicidal ideation, suicidal ideation Results Laboratory Results: 09/27/18 05:55 09/27/18 05:55 09/27/18 09/27/18 05:55 05:55 WBC 8.9 RBC 3.66 L Hgb 11.1 L Hct 32.6 L MCV 89 MCH 30.2 MCHC 34.0 RDW 14.4 H Plt Count 294 Sodium 135.2 L Potassium 3.8 Chloride 103 Carbon Dioxide 22 Anion Gap 10 BUN 14 Creatinine 0.61 Est GFR ( Amer) > 60 Est GFR (Non-Af Amer) > 60 Glucose 97 Calcium 9.5 Impressions: Chest X-Ray 09/24/18 00:00 IMPRESSION: NO ACUTE RADIOGRAPHIC FINDING IN THE CHEST. Hip/Pelvis X-Ray 09/24/18 11:13 IMPRESSION: Subcapital fracture of the femoral neck. Fluoroscopy 09/26/18 00:00 IMPRESSION: IMAGE(S) OBTAINED DURING PROCEDURE. Hip X-Ray 09/26/18 00:00 IMPRESSION: IMAGE(S) OBTAINED DURING PROCEDURE. Assessment and Plan - Diagnosis (1) Subcapital fracture of hip Qualifiers: Encounter type: initial encounter Fracture type: closed Laterality: right Qualified Code(s): S72.011A - Unspecified intracapsular fracture of right femur, initial encounter for closed fracture Is this a current diagnosis for this admission?: Yes Plan: 09/24/2018-82 year-old female came from [facility] with history of fall and found to have a right hip fracture. Actually it is a subcapital fracture of the right femoral neck. Plan to put her on surgical floor as an inpatient. All the consult was requested. Started on IV morphine 1 mg every 4 as needed for pain. Patient is going to be bedbound. Started on GI prophylaxis. No DVT prophylaxis was initiated except for SCDs because of possible hip surgery either today or tomorrow. Patient CODE STATUS is DNR/DNI. Plan to restart her home medications. PT OT consult was requested aids social worker consult was requested for discharge planning. Patient EKG has sinus rhythm. Chest x-ray was pending, labs are pending. PT/INR is pending. Waiting for the labs and chest x-ray results are available before clearing the patient for surgery. 09/25/[id number]-ymjn-old female from [facility]-way admitted after history of fall had a right hip fracture. For the consult was done patient is going for surgery tomorrow. PT OT consult was requested and aids social worker consult was requested for possible placement. I spoke to the daughter yesterday she prefers to take her home when she says she can take care of her mother at home. Patient may need home health and home PT. 09/26/[id number]-aikj-old female admitted for right hip fracture status post pinning. Today. Plan is to continue the present management as per ortho team. 09/27/2018 postop day 1 status post percutaneous fixation of the right femoral neck fracture. Patient is not in pain. Physical therapy consult was requested. daughter placement in [facility]. forestry worker consult was in [facility]. Patient did not have any bowel movement after surgery. Aguero's catheter was removed postop. (2) COPD (chronic obstructive pulmonary disease) Qualifiers: COPD type: unspecified COPD Qualified Code(s): J44.9 - Chronic obstructive pulmonary disease, unspecified Is this a current diagnosis for this admission?: No Plan: 09/24/2018-patient has history of COPD not on home oxygen pulse ox is 93% on room air. Plan to restart her home medications including albuterol inhaler albuterol nebulizations. 09/25/[id number]-ojn female with history of COPD not on home oxygen pulse ox is 92% on room air. Presently on albuterol inhaler, albuterol nebulizations. Plan is to continue the present management. 09/26/2018-patient has history of COPD pulse ox is 94% on room air. Stable. Plan is to continue all of her inhaler albuterol nebulizations. 09/27/2018 patient has history of COPD pulse ox is 96% on room air. (3) HTN (hypertension) Is this a current diagnosis for this admission?: No Plan: 09/24/2018-patient has history of hypertension she is on atenolol 100 milligrams p.o. daily at home which was resumed during the hospital today. To start the patient on hydralazine 10 mg IV every 6 as needed. 09/25/2018-patient blood pressure today is 146/57 pressure is stable. Presently on atenolol 100 mg p.o. daily. plan is to continue the present management. 09/26/2018-patient blood pressure today is 184/66. Presently on atenolol 100 mg p.o. daily, plan is to closely monitor her blood pressure. 09/27/2018-patient's blood pressure today is 119/55. and heart rate of 62. Presently on atenolol 100 mg p.o. daily plan is to continue the present management. (4) Dementia Is this a current diagnosis for this admission?: No Plan: 09/24/2018-as per the family patient has a vascular dementia. Not on any dementia medications at [facility]-way. Plan is to closely monitor her mental status during the hospital stay. 09/25/2018-patient has history of vascular dementia alert and awake communicating okay no signs of any anxiety and agitation. 09/27/2018-patient has history of vascular dementia patient alert awake communicating well today. (5) History of stroke Is this a current diagnosis for this admission?: No Plan: 09/25/2018 family is giving the history of stroke with resolution of the symptoms.09/24/2018-patient's daughter given the history of hemorrhagic stroke and also ischemic stroke in the past. Recently patient was in [place] in the [facility] for massive hemorrhagic stroke. At that time she has right-sided weakness that weakness was resolved at that time - Time Time Spent with patient: 25-34 minutes Medications reviewed and adjusted accordingly: Yes Anticipated discharge: SNF
[2018-09-27] MEDS: FLUTICASONE/VILANTEROL 200-25 MCG/DOSE IH SCH (22:20)
[2018-09-28] MEDS: HYDRALAZINE HCL 10 MG TABLET PO SCH ×3 (05:55→22:52)
[2018-09-28] MEDS: ACETAMINOPHEN 325 MG TABLET PO PRN (05:55)
[2018-09-28] MEDS: PANTOPRAZOLE SODIUM 40 MG TABLET.DR PO SCH (05:56)
[2018-09-28] MEDS: DOCUSATE SODIUM 100 MG CAPSULE PO SCH ×3 (09:56→22:51)
[2018-09-28] MEDS: POTASSIUM CHLORIDE 10 MEQ CAPSULE.ER PO SCH (09:57)
[2018-09-28] MEDS: FAMOTIDINE 20 MG TABLET PO SCH ×2 (09:57→22:51)
[2018-09-28] MEDS: POLYETHYLENE GLYCOL 3350 POWDER 17 GM/1 PACKET PO SCH ×2 (09:57→22:51)
[2018-09-28] MEDS: ASPIRIN 81 MG TABLET, ENT COATED PO SCH (09:57)
[2018-09-28] MEDS: MULTIVITAMIN TABLET PO SCH (09:57)
[2018-09-28] MEDS: AMLODIPINE BESYLATE 10 MG TABLET PO SCH (09:57)
[2018-09-28] MEDS: ATENOLOL 50 MG TABLET PO SCH ×2 (09:58→22:52)
[2018-09-28] MEDS: TIOTROPIUM BROMIDE DPI 5 CAP/KIT (18 MCG/CAP) IH SCH (09:59)
[2018-09-28] MEDS ORDERED: MORPHINE SULFATE 10 MG/ML INJ IV PRN (13:48)
--- NOTE | 2018-09-28 13:52 | PDOC PROGRESS REPORT ---
Subjective Progress Note for:: 09/28/18 Subjective:: 82 year old female history of dementia,, hemorrhagic stroke, COPD came to the emergency room after multiple falls. She was found on the floor yesterday by Dr. brought to the emergency room for further evaluation found to have a hip fracture. ER physician Dr. Witt discussed the case with Dr. To he agreed to do the ortho consult , requested hospitalist services to do the medical consult for admission. Went to see the pt and talk to the daughter who is at bedside she confirmed the history that patient has difficulty in ambulating after the strokes and had a couple of falls at [facility]. the daughter found her mom on the floor yesterday and brought to the emergency room here for further evaluation. In the ER wotk up shows right subcapital fracture of the femoral neck. Discussed the plan of care with the daughter she agreed her mom to be in the hospital for possible surgery. Patient is a DNR/DNI as per the family members. Patient denies any pain at the time of admission. 09/25/[id number]-zxpt-old female with multiple medical problems admitted after history of fall found to have right hip fracture. All the consult was done patient probably go to surgery tomorrow. PT OT consult was requested director social service consult was requested. Patient is DNR/DNI. Comfortably in the bed communicating well denies any pain. 09/26/[id number]-nlud-old female admitted with right hip fracture. Went for the procedure today. Comfortable in the bed sleeping. Family members at bedside. No concerns expressed by the family members. 09/27/2018-postop day 1. Patient is comfortably in the bed denies any pain. Denies any concerns. Daughter is at bedside she wants her mom to go to [facility] once stable. 09/28/2018-postop day 2. Patient is in moderate to severe distress. Complaining of right cough pain. Patient has a history of left lower leg DVT before. Not on anticoagulation because of history of hemorrhagic stroke. Daughter is requesting for a repeat DVT studies. Give morphine 1 mg IV every 6 as needed for pain. Reason For Visit: SUBCAPITAL FRACTURE OF HIP Physical Exam Vital Signs: Temp Pulse Resp BP Pulse Ox 97.4 F 64 17 160/69 H 94 09/28/18 12:00 09/28/18 12:00 09/28/18 12:00 09/28/18 12:00 09/28/18 12:00 Pulse Oximeter Continuous Start: 09/24/18 13:02 Freq: RTQ4 Status: Active Protocol: Document 09/28/18 11:37 [facility] (Rec: 09/28/18 11:38 [facility] [id number]) Pulse Oximetry Assessment Equipment Usage Equipment Standby Continuous SpO2 Machine # N1 Additional RT Notes Other Pulse oximeter on standby. Pt. working with physical therapy Intake & Output 09/27/18 09/28/18 09/29/18 06:59 06:59 06:59 Intake Total 2536 1500 300 Output Total 205 0 Balance 2331 1500 300 Weight 55.5 kg 57.2 kg General appearance: PRESENT: severe distress, thin Head exam: PRESENT: atraumatic Eye exam: PRESENT: PERRLA Mouth exam: PRESENT: moist, tongue midline Teeth exam: PRESENT: poor dentation Neck exam: ABSENT: carotid bruit, JVD, lymphadenopathy, thyromegaly Respiratory exam: PRESENT: decreased breath sounds Cardiovascular exam: PRESENT: tachycardia GI/Abdominal exam: PRESENT: normal bowel sounds, soft. ABSENT: distended, guarding, mass, organolmegaly, rebound, tenderness Rectal exam: PRESENT: deferred Extremities exam: PRESENT: calf tenderness Neurological exam: PRESENT: altered Psychiatric exam: PRESENT: appropriate affect, normal mood. ABSENT: homicidal ideation, suicidal ideation Results Laboratory Results: 09/27/18 05:55 09/27/18 05:55 Impressions: Chest X-Ray 09/24/18 00:00 IMPRESSION: NO ACUTE RADIOGRAPHIC FINDING IN THE CHEST. Hip/Pelvis X-Ray 09/24/18 11:13 IMPRESSION: Subcapital fracture of the femoral neck. Fluoroscopy 09/26/18 00:00 IMPRESSION: IMAGE(S) OBTAINED DURING PROCEDURE. Hip X-Ray 09/26/18 00:00 IMPRESSION: IMAGE(S) OBTAINED DURING PROCEDURE. Assessment and Plan - Diagnosis (1) Subcapital fracture of hip Qualifiers: Encounter type: initial encounter Fracture type: closed Laterality: right Qualified Code(s): S72.011A - Unspecified intracapsular fracture of right femur, initial encounter for closed fracture Is this a current diagnosis for this admission?: Yes Plan: 09/24/2018-82 year-old female came from [facility] with history of fall and found to have a right hip fracture. Actually it is a subcapital fracture of the right femoral neck. Plan to put her on surgical floor as an inpatient. All the consult was requested. Started on IV morphine 1 mg every 4 as needed for pain. Patient is going to be bedbound. Started on GI prophylaxis. No DVT prophylaxis was initiated except for SCDs because of possible hip surgery either today or tomorrow. Patient CODE STATUS is DNR/DNI. Plan to restart her home medications. PT OT consult was requested director social service consult was requested f or discharge planning. Patient EKG has sinus rhythm. Chest x-ray was pending, labs are pending. PT/INR is pending. Waiting for the labs and chest x-ray results are available before clearing the patient for surgery. 09/25/[id number]-sjqr-old female from longterm admitted after history of fall [place] d a right hip fracture. For the consult was done patient is going for surgery tomorrow. PT OT consult was requested and director social service consult was requested for possible placement. I spoke to the daughter yesterday she prefers to take her home when she says she can take care of her mother at home. Patient may need home health and home PT. 09/26/[id number]-ccic-old female admitted for right hip fracture status post pinning. Today. Plan is to continue the present management as per ortho team. 09/27/2018 postop day 1 status post percutaneous fixation of the right femoral neck fracture. Patient is not in pain. Physical therapy consult was requested. daughter placement in [facility]. cellar worker consult was in place. Patient did not have any bowel movement after surgery. Aguero's catheter was removed postop. 09/28/2018-postop day 2 status post percutaneous fixation of the right femoral neck fracture. Patient is in excruciating pain complaining of right calf pain. History of DVT in the left lower leg. Plan to do the Doppler of both legs today. (2) COPD (chronic obstructive pulmonary disease) Qualifiers: COPD type: unspecified COPD Qualified Code(s): J44.9 - Chronic obstructive pulmonary disease, unspecified Is this a current diagnosis for this admission?: No Plan: 09/24/2018-patient has history of COPD not on home oxygen pulse ox is 93% on room air. Plan to restart her home medications including albuterol inhaler albuterol nebulizations. 09/25/[id number]-hrb female with history of COPD not on home oxygen pulse ox is 92% on room air. Presently on albuterol inhaler, albuterol nebulizations. Plan is to continue the present management. 09/26/2018-patient has history of COPD pulse ox is 94% on room air. Stable. Plan is to continue all of her inhaler albuterol nebulizations. 09/27/2018 patient has history of COPD pulse ox is 96% on room air. 09/28/2018-oxygen 96% on 2 L. Chest examination bilaterally it was decreased no wheezing no crepitations. (3) HTN (hypertension) Is this a current diagnosis for this admission?: No Plan: 09/24/2018-patient has history of hypertension she is on atenolol 100 milligrams p.o. daily at home which was resumed during the hospital today. To start the patient on hydralazine 10 mg IV every 6 as needed. 09/25/2018-patient blood pressure today is 146/57 pressure is stable. Presently on atenolol 100 mg p.o. daily. plan is to continue the present management. 09/26/2018-patient blood pressure today is 184/66. Presently on atenolol 100 mg p.o. daily, plan is to closely monitor her blood pressure. 09/27/2018-patient's blood pressure today is 119/55. and heart rate of 62. Presently on atenolol 100 mg p.o. daily plan is to continue the present management. 09/28/2018-patient blood pressure is 11/56. With heart rate of 63. plan is to continue the present management. (4) Dementia Is this a current diagnosis for this admission?: No Plan: 09/24/2018-as per the family patient has a vascular dementia. Not on any dementia medications at longterm. Plan is to closely monitor her mental status during the hospital stay. 09/25/2018-patient has history of vascular dementia alert and awake communicating okay no signs of any anxiety and agitation. 09/27/2018-patient has history of vascular dementia patient alert awake communicating well today. 09/28/2018-patient has history of vascular dementia she is more confused and more agitated today. May be secondary to right cough pain. Daughter is bedside she thinks it is her mom's baseline. (5) History of stroke Is this a current diagnosis for this admission?: No - Time Time Spent with patient: 15-24 minutes Medications reviewed and adjusted accordingly: Yes Anticipated discharge: SNF
[2018-09-28] MEDS: TRAMADOL HCL 50 MG TABLET PO PRN ×2 (15:43→22:53)
[2018-09-28] MEDS: MONTELUKAST SODIUM 10 MG TABLET PO SCH (22:51)
[2018-09-28] MEDS: SENNOSIDES/DOCUSATE 8.6-50 MG 1 EACH TABLET PO SCH (22:51)
[2018-09-28] MEDS: FLUTICASONE/VILANTEROL 200-25 MCG/DOSE IH SCH (22:52)
[2018-09-28] MEDS: CETIRIZINE 5 MG TABLET PO SCH (22:53)
[2018-09-29 05:32] LABS: ABSOLUTE EOSINOPHILS # (AUTO) 0.3 10^3/uL (0.0-0.6); ABSOLUTE LYMPHOCYTES (AUTO) 1.6 10^3/uL (0.5-4.7); ABSOLUTE MONOCYTES (AUTO) 0.7 10^3/uL (0.1-1.4); ABSOLUTE NEUT (AUTO) 4.3 10^3/uL (1.7-8.2); BASOPHILS % (AUTO) 0.7 % (0-2); EOSINOPHILS % (AUTO) 4.4 % (0-6); HEMATOCRIT 32.7 % (36.0-47.0); HEMOGLOBIN 11.3 g/dL (12.0-15.5); LYMPHOCYTES % (AUTO) 23.1 % (13-45); MEAN CORPUSCULAR HEMOGLOBIN 30.4 pg (27.0-33.4); MEAN CORPUSCULAR HGB CONC 34.5 g/dL (32.0-36.0); MEAN CORPUSCULAR VOLUME 88 fl (80-97); MONOCYTES % (AUTO) 10.5 % (3-13); PLATELET COUNT 353 10^3/uL (150-450); RED BLOOD COUNT 3.71 10^6/uL (3.72-5.28); RED CELL DISTRIBUTION WIDTH 14.5 % (11.5-14.0); SEGMENTED NEUTROPHILS % (AUTO) 61.3 % (42-78); TOTAL CELLS COUNTED % (AUTO) 100 %
[2018-09-29 05:58] LABS: ALANINE AMINOTRANSFERASE 18 U/L (9-52); ALBUMIN 3.1 g/dL (3.5-5.0); ALKALINE PHOSPHATASE 92 U/L (38-126); ANION GAP 9 (5-19); ASPARTATE AMINO TRANSFERASE 16 U/L (14-36); BILIRUBIN,DIRECT 0.3 mg/dL (0.0-0.4); BILIRUBIN,TOTAL 0.4 mg/dL (0.2-1.3); BLOOD UREA NITROGEN 16 mg/dL (7-20); CALCIUM 9.3 mg/dL (8.4-10.2); CARBON DIOXIDE 28 mmol/L (22-30); CHLORIDE 101 mmol/L (98-107); GLUCOSE 87 mg/dL (75-110); POTASSIUM 3.9 mmol/L (3.6-5.0); SODIUM 137.8 mmol/L (137-145); TOTAL PROTEIN 5.8 g/dL (6.3-8.2)
[2018-09-29] MEDS: HYDRALAZINE HCL 10 MG TABLET PO SCH ×3 (06:56→21:21)
[2018-09-29] MEDS: PANTOPRAZOLE SODIUM 40 MG TABLET.DR PO SCH (06:56)
--- NOTE | 2018-09-29 08:34 | PDOC PROGRESS REPORT ---
Subjective Progress Note for:: 09/29/18 Reason For Visit: SUBCAPITAL FRACTURE OF HIP Patient more alert and conversant this morning. Physical Exam Vital Signs: Temp Pulse Resp BP Pulse Ox 36.9 C 70 16 141/67 H 94 09/28/18 23:16 09/28/18 23:16 09/28/18 23:16 09/28/18 23:16 09/29/18 04:19 Pulse Oximeter Continuous Start: 09/24/18 13:02 Freq: RTQ4 Status: Active Protocol: Document 09/29/18 04:19 [facility] (Rec: 09/29/18 04:19 [facility] [id number]) Pulse Oximetry Assessment Oxygen Saturation (92-100) 94 Oxygen Delivery Method Room Air Fraction of Inspired Oxygen (FIO2) 21 Equipment Usage Equipment in Use Continuous SpO2 Machine # 1 Intake & Output 09/28/18 09/29/18 09/30/18 06:59 06:59 06:59 Intake Total 1500 400 Output Total 0 Balance 1500 400 Weight 57.2 kg 56.4 kg General appearance: PRESENT: no acute distress, mild distress Head exam: PRESENT: normocephalic Respiratory exam: PRESENT: unlabored Cardiovascular exam: PRESENT: RRR Pulses: PRESENT: +1 pedal pulses bilateral Vascular exam: PRESENT: normal capillary refill GI/Abdominal exam: PRESENT: soft Rectal exam: PRESENT: deferred Extremities exam: PRESENT: other - Right lower extremity dressing dry. Leg lengths are equal. No swelling or tenderness in the calf. See no reason for Doppler ultrasound at this point. Neurological exam: PRESENT: alert, awake, oriented to situation. ABSENT: motor sensory deficit Skin exam: PRESENT: dry, intact, warm. ABSENT: cyanosis, rash Results Laboratory Results: 09/29/18 04:53 09/29/18 04:53 09/29/18 09/29/18 04:53 04:53 WBC 7.0 RBC 3.71 L Hgb 11.3 L Hct 32.7 L MCV 88 MCH 30.4 MCHC 34.5 RDW 14.5 H Plt Count 353 Seg Neutrophils % 61.3 Lymphocytes % 23.1 Monocytes % 10.5 Eosinophils % 4.4 Basophils % 0.7 Absolute Neutrophils 4.3 Absolute Lymphocytes 1.6 Absolute Monocytes 0.7 Absolute Eosinophils 0.3 Absolute Basophils 0.0 Sodium 137.8 Potassium 3.9 Chloride 101 Carbon Dioxide 28 Anion Gap 9 BUN 16 Creatinine 0.55 Est GFR ( Amer) > 60 Est GFR (Non-Af Amer) > 60 Glucose 87 Calcium 9.3 Magnesium 1.8 Total Bilirubin 0.4 AST 16 ALT 18 Alkaline Phosphatase 92 Total Protein 5.8 L Albumin 3.1 L Impressions: Chest X-Ray 09/24/18 00:00 IMPRESSION: NO ACUTE RADIOGRAPHIC FINDING IN THE CHEST. Hip/Pelvis X-Ray 09/24/18 11:13 IMPRESSION: Subcapital fracture of the femoral neck. Fluoroscopy 09/26/18 00:00 IMPRESSION: IMAGE(S) OBTAINED DURING PROCEDURE. Hip X-Ray 09/26/18 00:00 IMPRESSION: IMAGE(S) OBTAINED DURING PROCEDURE. Status: Imported from PACS Assessment & Plan - Diagnosis (1) Subcapital fracture of hip Qualifiers: Encounter type: initial encounter Fracture type: closed Laterality: right Qualified Code(s): S72.011A - Unspecified intracapsular fracture of right femur, initial encounter for closed fracture Is this a current diagnosis for this admission?: Yes Plan: Continue attempts at mobilization. Anticipate the need for assisted facility placement.
[2018-09-29] MEDS: ASPIRIN 81 MG TABLET, ENT COATED PO SCH (09:22)
[2018-09-29] MEDS: POTASSIUM CHLORIDE 10 MEQ CAPSULE.ER PO SCH (09:22)
[2018-09-29] MEDS: AMLODIPINE BESYLATE 10 MG TABLET PO SCH (09:22)
[2018-09-29] MEDS: BISACODYL 5 MG TABEC PO SCH (09:22)
[2018-09-29] MEDS: FAMOTIDINE 20 MG TABLET PO SCH ×2 (09:22→21:19)
[2018-09-29] MEDS: MULTIVITAMIN TABLET PO SCH (09:22)
[2018-09-29] MEDS: DOCUSATE SODIUM 100 MG CAPSULE PO SCH ×2 (09:23→21:19)
[2018-09-29] MEDS: TIOTROPIUM BROMIDE DPI 5 CAP/KIT (18 MCG/CAP) IH SCH (09:24)
[2018-09-29] MEDS: POLYETHYLENE GLYCOL 3350 POWDER 17 GM/1 PACKET PO SCH ×2 (09:24→21:19)
[2018-09-29] MEDS: ATENOLOL 50 MG TABLET PO SCH ×2 (09:25→21:23)
--- NOTE | 2018-09-29 12:00 | PDOC PROGRESS REPORT ---
Subjective Progress Note for:: 09/29/18 Subjective:: 82 year old female history of dementia,, hemorrhagic stroke, COPD came to the emergency room after multiple falls. She was found on the floor yesterday by Dr. brought to the emergency room for further evaluation found to have a hip fracture. ER physician Dr. Witt discussed the case with Dr. To he agreed to do the ortho consult , requested hospitalist services to do the medical consult for admission. Went to see the pt and talk to the daughter who is at bedside she confirmed the history that patient has difficulty in ambulating after the strokes and had a couple of falls at [facility]. the daughter found her mom on the floor yesterday and brought to the emergency room here for further evaluation. In the ER wotk up shows right subcapital fracture of the femoral neck. Discussed the plan of care with the daughter she agreed her mom to be in the hospital for possible surgery. Patient is a DNR/DNI as per the family members. Patient denies any pain at the time of admission. 09/25/[id number]-xxto-old female with multiple medical problems admitted after history of fall found to have right hip fracture. All the consult was done patient probably go to surgery tomorrow. PT OT consult was requested public health social worker consult was requested. Patient is DNR/DNI. Comfortably in the bed communicating well denies any pain. 09/26/[id number]-nyyw-old female admitted with right hip fracture. Went for the procedure today. Comfortable in the bed sleeping. Family members at bedside. No concerns expressed by the family members. 09/27/2018-postop day 1. Patient is comfortably in the bed denies any pain. Denies any concerns. Daughter is at bedside she wants her mom to go to [facility] once stable. 09/28/2018-postop day 2. Patient is in moderate to severe distress. Complaining of right cough pain. Patient has a history of left lower leg DVT before. Not on anticoagulation because of history of hemorrhagic stroke. Daughter is requesting for a repeat DVT studies. Give morphine 1 mg IV every 6 as needed for pain. 09/29/2018 postop day 3. Patient is comfortable in the bed no pain, no complaints of pain. No family members are present. Denies any complaints. Reason For Visit: SUBCAPITAL FRACTURE OF HIP Physical Exam Vital Signs: Temp Pulse Resp BP Pulse Ox 98.1 F 67 16 158/60 H 94 09/29/18 07:27 09/29/18 07:27 09/29/18 07:27 09/29/18 07:27 09/29/18 11:54 Pulse Oximeter Continuous Start: 09/24/18 13:02 Freq: RTQ4 Status: Active Protocol: Document 09/29/18 11:54 [facility] (Rec: 09/29/18 11:54 [facility] [id number]) Pulse Oximetry Assessment Oxygen Saturation (92-100) 94 Oxygen Delivery Method Room Air Equipment Usage Equipment in Use Continuous SpO2 Machine # 1 Intake & Output 09/28/18 09/29/18 09/30/18 06:59 06:59 06:59 Intake Total 1500 400 Output Total 0 Balance 1500 400 Weight 57.2 kg 56.4 kg General appearance: PRESENT: no acute distress, thin Head exam: PRESENT: atraumatic Eye exam: PRESENT: PERRLA Mouth exam: PRESENT: moist, tongue midline Neck exam: ABSENT: carotid bruit, JVD, lymphadenopathy, thyromegaly Respiratory exam: PRESENT: decreased breath sounds Cardiovascular exam: PRESENT: RRR. ABSENT: diastolic murmur, rubs, systolic murmur GI/Abdominal exam: PRESENT: normal bowel sounds, soft. ABSENT: distended, guarding, mass, organolmegaly, rebound, tenderness Extremities exam: PRESENT: full ROM. ABSENT: calf tenderness, clubbing, pedal edema Neurological exam: PRESENT: alert, awake, other - Patient has dementia Results Laboratory Results: 09/29/18 04:53 09/29/18 04:53 09/29/18 09/29/18 04:53 04:53 WBC 7.0 RBC 3.71 L Hgb 11.3 L Hct 32.7 L MCV 88 MCH 30.4 MCHC 34.5 RDW 14.5 H Plt Count 353 Seg Neutrophils % 61.3 Lymphocytes % 23.1 Monocytes % 10.5 Eosinophils % 4.4 Basophils % 0.7 Absolute Neutrophils 4.3 Absolute Lymphocytes 1.6 Absolute Monocytes 0.7 Absolute Eosinophils 0.3 Absolute Basophils 0.0 Sodium 137.8 Potassium 3.9 Chloride 101 Carbon Dioxide 28 Anion Gap 9 BUN 16 Creatinine 0.55 Est GFR ( Amer) > 60 Est GFR (Non-Af Amer) > 60 Glucose 87 Calcium 9.3 Magnesium 1.8 Total Bilirubin 0.4 AST 16 ALT 18 Alkaline Phosphatase 92 Total Protein 5.8 L Albumin 3.1 L Impressions: Chest X-Ray 09/24/18 00:00 IMPRESSION: NO ACUTE RADIOGRAPHIC FINDING IN THE CHEST. Hip/Pelvis X-Ray 09/24/18 11:13 IMPRESSION: Subcapital fracture of the femoral neck. Fluoroscopy 09/26/18 00:00 IMPRESSION: IMAGE(S) OBTAINED DURING PROCEDURE. Hip X-Ray 09/26/18 00:00 IMPRESSION: IMAGE(S) OBTAINED DURING PROCEDURE. Assessment and Plan - Diagnosis (1) Subcapital fracture of hip Qualifiers: Encounter type: initial encounter Fracture type: closed Laterality: right Qualified Code(s): S72.011A - Unspecified intracapsular fracture of right femur, initial encounter for closed fracture Is this a current diagnosis for this admission?: Yes Plan: 09/24/2018-82 year-old female came from [facility] with history of fall and found to have a right hip fracture. Actually it is a subcapital fracture of the right femoral neck. Plan to put her on surgical floor as an inpatient. All the consult was requested. Started on IV morphine 1 mg every 4 as needed for pain. Patient is going to be bedbound. Started on GI prophylaxis. No DVT prophylaxis was initiated except for SCDs because of possible hip surgery either today or tomorrow. Patient CODE STATUS is DNR/DNI. Plan to restart her home medications. PT OT consult was requested public health social worker consult was requested for discharge planning. Patient EKG has sinus rhythm. Chest x-ray was pending, labs are pending. PT/INR is pending. Waiting for the labs and chest x-ray results are available before clearing the patient for surgery. 09/25/[id number]-eazx-old female from skilled nursing admitted after history of fall had a right hip fracture. For the consult was done patient is going for surgery tomorrow. PT OT consult was requested and public health social worker consult was requested for possible placement. I spoke to the daughter yesterday she prefers to take her home when she says she can take care of her mother at home. Patient may need home health and home PT. 09/26/[id number]-leax-old female admitted for right hip fracture status post pinning. Today. Plan is to continue the present management as per ortho team. 09/27/2018 postop day 1 status post percutaneous fixation of the right femoral neck fracture. Patient is not in pain. Physical therapy consult was requested. daughter placement in [facility]. material worker consult was in place. Patient did not have any bowel movement after surgery. Aguero's catheter was removed postop. 09/28/2018-postop day 2 status post percutaneous fixation of the right femoral neck fracture. Patient is in excruciating pain complaining of right calf pain. History of DVT in the left lower leg. Plan to do the Doppler of both legs today. 09/29/2018-postop day 3 status post percutaneous fixation of the rt femoral neck fracture. Social work consult requested, patient is awaiting for placement. (2) COPD (chronic obstructive pulmonary disease) Qualifiers: COPD type: unspecified COPD Qualified Code(s): J44.9 - Chronic obstructive pulmonary disease, unspecified Is this a current diagnosis for this admission?: No Plan: 09/24/2018-patient has history of COPD not on home oxygen pulse ox is 93% on room air. Plan to restart her home medications including albuterol inhaler albuterol nebulizations. 09/25/[id number]-meq female with history of COPD not on home oxygen pulse ox is 92% on room air. Presently on albuterol inhaler, albuterol nebulizations. Plan is to continue the present management. 09/26/2018-patient has history of COPD pulse ox is 94% on room air. Stable. Plan is to continue all of her inhaler albuterol nebulizations. 09/27/2018 patient has history of COPD pulse ox is 96% on room air. 09/28/2018-oxygen 96% on 2 L. Chest examination bilaterally it was decreased no wheezing no crepitations. 22,019-pulse ox is 98% on 2 L. Chest bilateral interval decrease no wheezing no crepitations. Plan is to continue the present management. (3) HTN (hypertension) Is this a current diagnosis for this admission?: No Plan: 09/24/2018-patient has history of hypertension she is on atenolol 100 milligrams p.o. daily at home which was resumed during the hospital today. To start the patient on hydralazine 10 mg IV every 6 as needed. 09/25/2018-patient blood pressure today is 146/57 pressure is stable. Presently on atenolol 100 mg p.o. daily. plan is to continue the present management. 09/26/2018-patient blood pressure today is 184/66. Presently on atenolol 100 mg p.o. daily, plan is to closely monitor her blood pressure. 09/27/2018-patient's blood pressure today is 119/55. and heart rate of 62. Presently on atenolol 100 mg p.o. daily plan is to continue the present management. 09/28/2018-patient blood pressure is 111/56. With heart rate of 63. plan is to continue the present management. 09/29/2018-patient blood pressure today is 141/67. With the pulse rate of 67. Plan is to continue the present management. (4) Dementia Is this a current diagnosis for this admission?: No (5) History of stroke Is this a current diagnosis for this admission?: No - Time Time Spent with patient: 25-34 minutes Medications reviewed and adjusted accordingly: Yes Anticipated discharge: SNF
[2018-09-29] MEDS: TRAMADOL HCL 50 MG TABLET PO PRN ×2 (14:31→21:19)
--- NOTE | 2018-09-29 15:24 | RADIOLOGY REPORT (SQ) ---
EXAM DESCRIPTION: VENOUS BILATERAL LOWER COMPLETED DATE/TIME: 09/29/2018 3:12 pm REASON FOR STUDY: calf pain and swelling COMPARISON: None. TECHNIQUE: Dynamic and static bach scale and color images acquired of both lower extremity venous sy stems. Selected spectral images acquired with additional compression and augmentation maneuvers. Imag es stored on PACS. LIMITATIONS: None. FINDINGS: RIGHT LEG COMMON FEMORAL AND FEMORAL: Normal phasicity, compression and augmentation. No visualized echogenic m aterial on bach scale. No defects on color images. POPLITEAL: Normal compression and augmentation. No visualized echogenic material on bach scale. No de fects on color images. CALF VESSELS: Normal compression and augmentation. No visualized echogenic material on bach scale. No defects on color image. GSV AND SSV: Normal compression. No visualized echogenic material on bach scale. No defects on color images. ANY DEEP VENOUS INSUFFICIENCY: Not evaluated. ANY EVIDENCE OF POPLITEAL CYST: No. OTHER: No other significant finding. LEFT LEG COMMON FEMORAL AND FEMORAL: Normal phasicity, compression and augmentation. No visualized echogenic m aterial on bach scale. No defects on color images. POPLITEAL: Normal compression and augmentation. No visualized echogenic material on bach scale. No de fects on color images. CALF VESSELS: Normal compression and augmentation. No visualized echogenic material on bach scale. No defects on color images. GSV AND SSV: Normal compression. No visualized echogenic material on bach scale. No defects on color images. ANY DEEP VENOUS INSUFFICIENCY: Not evaluated. ANY EVIDENCE POPLITEAL CYST: No. OTHER: No other significant finding. IMPRESSION: NO EVIDENCE DVT OR SVT IN EITHER LEG. TECHNICAL DOCUMENTATION: JOB ID: [id number] [employer]- All Rights Reserved Reading location - IP/workstation name: [email or web address]
[2018-09-29] MEDS: SENNOSIDES/DOCUSATE 8.6-50 MG 1 EACH TABLET PO SCH (21:19)
[2018-09-29] MEDS: MONTELUKAST SODIUM 10 MG TABLET PO SCH (21:19)
[2018-09-29] MEDS: FLUTICASONE/VILANTEROL 200-25 MCG/DOSE IH SCH (21:20)
[2018-09-29] MEDS: CETIRIZINE 5 MG TABLET PO SCH (21:23)
[2018-09-30] MEDS: PANTOPRAZOLE SODIUM 40 MG TABLET.DR PO SCH (05:51)
[2018-09-30] MEDS: HYDRALAZINE HCL 10 MG TABLET PO SCH ×3 (05:52→22:24)
[2018-09-30] MEDS: MULTIVITAMIN TABLET PO SCH (09:57)
[2018-09-30] MEDS: FAMOTIDINE 20 MG TABLET PO SCH ×2 (09:57→22:23)
[2018-09-30] MEDS: ATENOLOL 50 MG TABLET PO SCH ×2 (09:57→22:25)
[2018-09-30] MEDS: POTASSIUM CHLORIDE 10 MEQ CAPSULE.ER PO SCH (09:57)
[2018-09-30] MEDS: DOCUSATE SODIUM 100 MG CAPSULE PO SCH ×3 (09:57→22:24)
[2018-09-30] MEDS: AMLODIPINE BESYLATE 10 MG TABLET PO SCH (09:57)
[2018-09-30] MEDS: TIOTROPIUM BROMIDE DPI 5 CAP/KIT (18 MCG/CAP) IH SCH (09:58)
[2018-09-30] MEDS: POLYETHYLENE GLYCOL 3350 POWDER 17 GM/1 PACKET PO SCH ×2 (09:58→22:23)
[2018-09-30] MEDS: ASPIRIN 81 MG TABLET, ENT COATED PO SCH (09:58)
--- NOTE | 2018-09-30 11:55 | PDOC PROGRESS REPORT ---
Subjective Progress Note for:: 09/30/18 Subjective:: 82 year old female history of dementia,, hemorrhagic stroke, COPD came to the emergency room after multiple falls. She was found on the floor yesterday by Dr. brought to the emergency room for further evaluation found to have a hip fracture. ER physician Dr. Witt discussed the case with Dr. To he agreed to do the ortho consult , requested hospitalist services to do the medical consult for admission. Went to see the pt and talk to the daughter who is at bedside she confirmed the history that patient has difficulty in ambulating after the strokes and had a couple of falls at [facility]. the daughter found her mom on the floor yesterday and brought to the emergency room here for further evaluation. In the ER wotk up shows right subcapital fracture of the femoral neck. Discussed the plan of care with the daughter she agreed her mom to be in the hospital for possible surgery. Patient is a DNR/DNI as per the family members. Patient denies any pain at the time of admission. 09/25/[id number]-queb-old female with multiple medical problems admitted after history of fall found to have right hip fracture. All the consult was done patient probably go to surgery tomorrow. PT OT consult was requested outreach and education social worker consult was requested. Patient is DNR/DNI. Comfortably in the bed communicating well denies any pain. 09/26/[id number]-uypw-old female admitted with right hip fracture. Went for the procedure today. Comfortable in the bed sleeping. Family members at bedside. No concerns expressed by the family members. 09/27/2018-postop day 1. Patient is comfortably in the bed denies any pain. Denies any concerns. Daughter is at bedside she wants her mom to go to [facility] once stable. 09/28/2018-postop day 2. Patient is in moderate to severe distress. Complaining of right cough pain. Patient has a history of left lower leg DVT before. Not on anticoagulation because of history of hemorrhagic stroke. Daughter is requesting for a repeat DVT studies. Give morphine 1 mg IV every 6 as needed for pain. 09/29/2018 postop day 3. Patient is comfortable in the bed no pain, no complaints of pain. No family members are present. Denies any complaints. 09/30/2018-postop day 4. No acute events after the surgery. Patient is comfortably in the bed. Patient does not have any bowel movement for the last several days. To give mag citrate today. DVT studies are negative. Is waiting for placement. Reason For Visit: SUBCAPITAL FRACTURE OF HIP Physical Exam Vital Signs: Temp Pulse Resp BP Pulse Ox 97.3 F 64 16 136/66 H 93 09/30/18 11:14 09/30/18 11:14 09/30/18 11:14 09/30/18 11:14 09/30/18 11:14 Pulse Oximeter Continuous Start: 09/24/18 13:02 Freq: RTQ4 Status: Active Protocol: Document 09/30/18 04:36 [facility] (Rec: 09/30/18 04:36 [facility] [id number]) Pulse Oximetry Assessment Oxygen Saturation (92-100) 95 Oxygen Delivery Method Room Air Fraction of Inspired Oxygen (FIO2) 21 Equipment Usage Equipment in Use Continuous SpO2 Machine # 1 Intake & Output 09/29/18 09/30/18 10/01/18 06:59 06:59 06:59 Intake Total 400 210 Balance 400 210 Weight 56.4 kg 56.5 kg General appearance: PRESENT: no acute distress, thin Head exam: PRESENT: atraumatic Eye exam: PRESENT: PERRLA Mouth exam: PRESENT: moist, tongue midline Neck exam: ABSENT: carotid bruit, JVD, lymphadenopathy, thyromegaly Respiratory exam: PRESENT: decreased breath sounds Cardiovascular exam: PRESENT: tachycardia GI/Abdominal exam: PRESENT: normal bowel sounds, soft. ABSENT: distended, guarding, mass, organolmegaly, rebound, tenderness Extremities exam: PRESENT: full ROM. ABSENT: calf tenderness, clubbing, pedal edema Neurological exam: PRESENT: alert, awake, oriented to person, oriented to place, oriented to time, oriented to situation, CN II-XII grossly intact. ABSENT: motor sensory deficit Psychiatric exam: PRESENT: appropriate affect, normal mood. ABSENT: homicidal ideation, suicidal ideation Results Laboratory Results: 09/29/18 04:53 09/29/18 04:53 Impressions: Chest X-Ray 09/24/18 00:00 IMPRESSION: NO ACUTE RADIOGRAPHIC FINDING IN THE CHEST. Hip/Pelvis X-Ray 09/24/18 11:13 IMPRESSION: Subcapital fracture of the femoral neck. Fluoroscopy 09/26/18 00:00 IMPRESSION: IMAGE(S) OBTAINED DURING PROCEDURE. Hip X-Ray 09/26/18 00:00 IMPRESSION: IMAGE(S) OBTAINED DURING PROCEDURE. Venous Doppler Study 09/29/18 00:00 IMPRESSION: NO EVIDENCE DVT OR SVT IN EITHER LEG. Assessment and Plan - Diagnosis (1) Subcapital fracture of hip Qualifiers: Encounter type: initial encounter Fracture type: closed Laterality: right Qualified Code(s): S72.011A - Unspecified intracapsular fracture of right femur, initial encounter for closed fracture Is this a current diagnosis for this admission?: Yes Plan: 09/24/2018-82 year-old female came from [facility] with history of fall and found to have a right hip fracture. Actually it is a subcapital fracture of the right femoral neck. Plan to put her on surgical floor as an inpatient. All the consult was requested. Started on IV morphine 1 mg every 4 as needed for pain. Patient is going to be bedbound. Started on GI prophylaxis. No DVT prophylaxis was initiated except for SCDs because of possible hip surgery either today or tomorrow. Patient CODE STATUS is DNR/DNI. Plan to restart her home medications. PT OT consult was requested outreach and education social worker consult was requested for discharge planning. Patient EKG has sinus rhythm. Chest x-ray was pending, labs are pending. PT/INR is pending. Waiting for the labs and chest x-ray results are available before clearing the patient for surgery. 09/25/[id number]-tlrd-old female from senior care admitted after history of fall had a right hip fracture. For the consult was done patient is going for surgery tomorrow. PT OT consult was requested and outreach and education social worker consult was requested for possible placement. I spoke to the daughter yesterday she prefers to take her home when she says she can take care of her mother at home. Patient may need home health and home PT. 09/26/[id number]-slbb-old female admitted for right hip fracture status post pinning. Today. Plan is to continue the present management as per ortho team. 09/27/2018 postop day 1 status post percutaneous fixation of the right femoral neck fracture. Patient is not in pain. Physical therapy consult was requested. daughter placement in [facility]. structural iron worker consult was in place. Patient did not have any bowel movement after surgery. Aguero's catheter was removed postop. 09/28/2018-postop day 2 status post percutaneous fixation of the right femoral neck fracture. Patient is in excruciating pain complaining of right calf pain. History of DVT in the left lower leg. Plan to do the Doppler of both legs today. 09/29/2018-postop day 3 status post percutaneous fixation of the rt femoral neck fracture. Social work consult requested, patient is awaiting for placement. 09/30/2018-postop day 4. Patient had percutaneous fixation of the right femoral neck fracture. Waiting for placement. No acute events after the surgery. (2) COPD (chronic obstructive pulmonary disease) Qualifiers: COPD type: unspecified COPD Qualified Code(s): J44.9 - Chronic obstructive pulmonary disease, unspecified Is this a current diagnosis for this admission?: No (3) HTN (hypertension) Is this a current diagnosis for this admission?: No Plan: 09/24/2018-patient has history of hypertension she is on atenolol 100 milligrams p.o. daily at home which was resumed during the hospital today. To start the patient on hydralazine 10 mg IV every 6 as needed. 09/25/2018-patient blood pressure today is 146/57 pressure is stable. Presently on atenolol 100 mg p.o. daily. plan is to continue the present management. 09/26/2018-patient blood pressure today is 184/66. Presently on atenolol 100 mg p.o. daily, plan is to closely monitor her blood pressure. 09/27/2018-patient's blood pressure today is 119/55. and heart rate of 62. Presently on atenolol 100 mg p.o. daily plan is to continue the present management. 09/28/2018-patient blood pressure is 111/56. With heart rate of 63. plan is to continue the present management. 09/29/2018-patient blood pressure today is 141/67. With the pulse rate of 67. Plan is to continue the present management. 09/30/2018 blood pressure today is 154/73. On atenolol 100 mg p.o. daily plan is to continue the present management. (4) Dementia Is this a current diagnosis for this admission?: No (5) History of stroke Is this a current diagnosis for this admission?: No (6) Constipation Is this a current diagnosis for this admission?: Yes Plan: For 2018-patient does not have any bowel movement for the last several days. She is on MiraLAX, Dulcolax is not working. Plan to give mag citrate today hopefully it works. - Time Time Spent with patient: 15-24 minutes Medications reviewed and adjusted accordingly: Yes Anticipated discharge: SNF
[2018-09-30] MEDS ORDERED: MAGNESIUM CITRATE 296 ML BOTTLE PO PRN (14:00)
[2018-09-30] MEDS: MONTELUKAST SODIUM 10 MG TABLET PO SCH (22:23)
[2018-09-30] MEDS: SENNOSIDES/DOCUSATE 8.6-50 MG 1 EACH TABLET PO SCH (22:23)
[2018-09-30] MEDS: FLUTICASONE/VILANTEROL 200-25 MCG/DOSE IH SCH (22:24)
[2018-09-30] MEDS: CETIRIZINE 5 MG TABLET PO SCH (22:26)
[2018-10-01] MEDS: HYDRALAZINE HCL 10 MG TABLET PO SCH ×3 (05:43→22:08)
[2018-10-01] MEDS: PANTOPRAZOLE SODIUM 40 MG TABLET.DR PO SCH (05:44)
[2018-10-01 08:57] LABS: ABSOLUTE BASOPHILS # (AUTO) 0.1 10^3/uL (0.0-0.2); ABSOLUTE EOSINOPHILS # (AUTO) 0.3 10^3/uL (0.0-0.6); ABSOLUTE LYMPHOCYTES (AUTO) 1.9 10^3/uL (0.5-4.7); ABSOLUTE MONOCYTES (AUTO) 0.9 10^3/uL (0.1-1.4); ABSOLUTE NEUT (AUTO) 5.7 10^3/uL (1.7-8.2); BASOPHILS % (AUTO) 0.9 % (0-2); EOSINOPHILS % (AUTO) 3.2 % (0-6); HEMATOCRIT 33.3 % (36.0-47.0); HEMOGLOBIN 11.5 g/dL (12.0-15.5); LYMPHOCYTES % (AUTO) 21.4 % (13-45); MEAN CORPUSCULAR HEMOGLOBIN 30.5 pg (27.0-33.4); MEAN CORPUSCULAR HGB CONC 34.5 g/dL (32.0-36.0); MEAN CORPUSCULAR VOLUME 88 fl (80-97); MONOCYTES % (AUTO) 10.3 % (3-13); PLATELET COUNT 421 10^3/uL (150-450); RED BLOOD COUNT 3.77 10^6/uL (3.72-5.28); RED CELL DISTRIBUTION WIDTH 14.8 % (11.5-14.0); SEGMENTED NEUTROPHILS % (AUTO) 64.2 % (42-78); TOTAL CELLS COUNTED % (AUTO) 100 %; WHITE BLOOD COUNT 8.9 10^3/uL (4.0-10.5)
[2018-10-01 09:25] LABS: ALANINE AMINOTRANSFERASE 20 U/L (9-52); ALBUMIN 3.4 g/dL (3.5-5.0); ALKALINE PHOSPHATASE 105 U/L (38-126); ANION GAP 8 (5-19); ASPARTATE AMINO TRANSFERASE 22 U/L (14-36); BILIRUBIN,DIRECT 0.2 mg/dL (0.0-0.4); BILIRUBIN,TOTAL 0.5 mg/dL (0.2-1.3); BLOOD UREA NITROGEN 20 mg/dL (7-20); CALCIUM 9.8 mg/dL (8.4-10.2); CARBON DIOXIDE 27 mmol/L (22-30); CHLORIDE 101 mmol/L (98-107); GLUCOSE 104 mg/dL (75-110); POTASSIUM 4.5 mmol/L (3.6-5.0); SODIUM 135.5 mmol/L (137-145); TOTAL PROTEIN 6.1 g/dL (6.3-8.2)
[2018-10-01] MEDS: FAMOTIDINE 20 MG TABLET PO SCH ×2 (10:26→22:07)
[2018-10-01] MEDS: ATENOLOL 50 MG TABLET PO SCH ×2 (10:26→22:08)
[2018-10-01] MEDS: AMLODIPINE BESYLATE 10 MG TABLET PO SCH (10:26)
[2018-10-01] MEDS: ASPIRIN 81 MG TABLET, ENT COATED PO SCH (10:26)
[2018-10-01] MEDS: POTASSIUM CHLORIDE 10 MEQ CAPSULE.ER PO SCH (10:26)
[2018-10-01] MEDS: POLYETHYLENE GLYCOL 3350 POWDER 17 GM/1 PACKET PO SCH ×2 (10:26→22:07)
[2018-10-01] MEDS: DOCUSATE SODIUM 100 MG CAPSULE PO SCH ×2 (10:27→22:07)
[2018-10-01] MEDS: BISACODYL 5 MG TABEC PO SCH (10:27)
[2018-10-01] MEDS: TIOTROPIUM BROMIDE DPI 5 CAP/KIT (18 MCG/CAP) IH SCH (10:27)
[2018-10-01] MEDS: MULTIVITAMIN TABLET PO SCH (10:28)
--- NOTE | 2018-10-01 13:36 | PDOC PROGRESS REPORT ---
Subjective Progress Note for:: 10/01/18 Subjective:: 82 year old female history of dementia,, hemorrhagic stroke, COPD came to the emergency room after multiple falls. She was found on the floor yesterday by Dr. brought to the emergency room for further evaluation found to have a hip fracture. ER physician Dr. Witt discussed the case with Dr. To he agreed to do the ortho consult , requested hospitalist services to do the medical consult for admission. Went to see the pt and talk to the daughter who is at bedside she confirmed the history that patient has difficulty in ambulating after the strokes and had a couple of falls at [facility]. the daughter found her mom on the floor yesterday and brought to the emergency room here for further evaluation. In the ER wotk up shows right subcapital fracture of the femoral neck. Discussed the plan of care with the daughter she agreed her mom to be in the hospital for possible surgery. Patient is a DNR/DNI as per the family members. Patient denies any pain at the time of admission. 09/25/[id number]-nowf-old female with multiple medical problems admitted after history of fall found to have right hip fracture. All the consult was done patient probably go to surgery tomorrow. PT OT consult was requested social services assistant consult was requested. Patient is DNR/DNI. Comfortably in the bed communicating well denies any pain. 09/26/[id number]-vzgf-old female admitted with right hip fracture. Went for the procedure today. Comfortable in the bed sleeping. Family members at bedside. No concerns expressed by the family members. 09/27/2018-postop day 1. Patient is comfortably in the bed denies any pain. Denies any concerns. Daughter is at bedside she wants her mom to go to [facility] once stable. 09/28/2018-postop day 2. Patient is in moderate to severe distress. Complaining of right cough pain. Patient has a history of left lower leg DVT before. Not on anticoagulation because of history of hemorrhagic stroke. Daughter is requesting for a repeat DVT studies. Give morphine 1 mg IV every 6 as needed for pain. 09/29/2018 postop day 3. Patient is comfortable in the bed no pain, no complaints of pain. No family members are present. Denies any complaints. 09/30/2018-postop day 4. No acute events after the surgery. Patient is comfortably in the bed. Patient does not have any bowel movement for the last several days. To give mag citrate today. DVT studies are negative. pt Is waiting for placement. 10/01/2018-postop day 5 no acute events after the surgery. Waiting for the placement. DVT studies are negative. Reason For Visit: SUBCAPITAL FRACTURE OF HIP Physical Exam Vital Signs: Temp Pulse Resp BP Pulse Ox 97.5 F 65 16 135/61 H 96 10/01/18 11:24 10/01/18 11:24 10/01/18 11:24 10/01/18 11:24 10/01/18 12:34 Pulse Oximeter Continuous Start: 09/24/18 13:02 Freq: RTQ4 Status: Active Protocol: Document 10/01/18 12:34 [facility] (Rec: 10/01/18 12:34 [facility] [id number]) Pulse Oximetry Assessment Oxygen Saturation (92-100) 96 Oxygen Delivery Method Room Air Fraction of Inspired Oxygen (FIO2) 21 Equipment Usage Equipment in Use Continuous SpO2 Machine # N 1 Intake & Output 09/30/18 10/01/18 10/02/18 06:59 06:59 06:59 Intake Total 210 582 Balance 210 582 Weight 56.5 kg 56.5 kg General appearance: PRESENT: no acute distress, thin Head exam: PRESENT: atraumatic Eye exam: PRESENT: PERRLA Teeth exam: PRESENT: edentulous Neck exam: ABSENT: carotid bruit, JVD, lymphadenopathy, thyromegaly Respiratory exam: PRESENT: decreased breath sounds Cardiovascular exam: PRESENT: tachycardia GI/Abdominal exam: PRESENT: normal bowel sounds, soft. ABSENT: distended, g uarding, mass, organolmegaly, rebound, tenderness Rectal exam: PRESENT: deferred Gentrourinary exam: PRESENT: indwelling catheter Neurological exam: PRESENT: alert, awake, oriented to person, oriented to place, oriented to time, oriented to situation, CN II-XII grossly intact. ABSENT: motor sensory deficit Psychiatric exam: PRESENT: appropriate affect, normal mood. ABSENT: homicidal ideation, suicidal ideation Results Laboratory Results: 10/01/18 08:25 10/01/18 08:25 10/01/18 10/01/18 08:25 08:25 WBC 8.9 RBC 3.77 Hgb 11.5 L Hct 33.3 L MCV 88 MCH 30.5 MCHC 34.5 RDW 14.8 H Plt Count 421 Seg Neutrophils % 64.2 Lymphocytes % 21.4 Monocytes % 10.3 Eosinophils % 3.2 Basophils % 0.9 Absolute Neutrophils 5.7 Absolute Lymphocytes 1.9 Absolute Monocytes 0.9 Absolute Eosinophils 0.3 Absolute Basophils 0.1 Sodium 135.5 L Potassium 4.5 Chloride 101 Carbon Dioxide 27 Anion Gap 8 BUN 20 Creatinine 0.61 Est GFR ( Amer) > 60 Est GFR (Non-Af Amer) > 60 Glucose 104 Calcium 9.8 Magnesium 2.2 Total Bilirubin 0.5 AST 22 ALT 20 Alkaline Phosphatase 105 Total Protein 6.1 L Albumin 3.4 L Impressions: Chest X-Ray 09/24/18 00:00 IMPRESSION: NO ACUTE RADIOGRAPHIC FINDING IN THE CHEST. Hip/Pelvis X-Ray 09/24/18 11:13 IMPRESSION: Subcapital fracture of the femoral neck. Fluoroscopy 09/26/18 00:00 IMPRESSION: IMAGE(S) OBTAINED DURING PROCEDURE. Hip X-Ray 09/26/18 00:00 IMPRESSION: IMAGE(S) OBTAINED DURING PROCEDURE. Venous Doppler Study 09/29/18 00:00 IMPRESSION: NO EVIDENCE DVT OR SVT IN EITHER LEG. Assessment and Plan - Diagnosis (1) Subcapital fracture of hip Qualifiers: Encounter type: initial encounter Fracture type: closed Laterality: right Qualified Code(s): S72.011A - Unspecified intracapsular fracture of right femur, initial encounter for closed fracture Is this a current diagnosis for this admission?: Yes Plan: 09/24/2018-82 year-old female came from [facility] with history of fall and found to have a right hip fracture. Actually it is a subcapital fracture of the right femoral neck. Plan to put her on surgical floor as an inpatient. All the consult was requested. Started on IV morphine 1 mg every 4 as needed for pain. Patient is going to be bedbound. Started on GI prophylaxis. No DVT prophylaxis was initiated except for SCDs because of possible hip surgery either today or tomorrow. Patient CODE STATUS is DNR/DNI. Plan to restart her home medications. PT OT consult was requested social services assistant consult was requested for discharge planning. Patient EKG has sinus rhythm. Chest x-ray was pending, labs are pending. PT/INR is pending. Waiting for the labs and chest x-ray results are available before clearing the patient for surgery. 09/25/[id number]-nabl-old female from [facility] admitted after history of fall had a right hip fracture. For the consult was done patient is going for surgery tomorrow. PT OT consult was requested and social services assistant consult was requested for possible placement. I spoke to the daughter yesterday she prefers to take her home when she says she can take care of her mother at home. Patient may need home health and home PT. 09/26/[id number]-gonl-old female admitted for right hip fracture status post pinning. Today. Plan is to continue the present management as per ortho team. 09/27/2018 postop day 1 status post percutaneous fixation of the right femoral neck fracture. Patient is not in pain. Physical therapy consult was requested. daughter placement in [facility]. groundskeeping maintenance worker consult was in place. Patient did not have any bowel movement after surgery. Aguero's catheter was removed postop. 09/28/2018-postop day 2 status post percutaneous fixation of the right femoral neck fracture. Patient is in excruciating pain complaining of right calf pain. History of DVT in the left lower leg. Plan to do the Doppler of both legs today. 09/29/2018-postop day 3 status post percutaneous fixation of the rt femoral neck fracture. Social work consult requested, patient is awaiting for placement. 09/30/2018-postop day 4. Patient had percutaneous fixation of the right femoral neck fracture. Waiting for placement. No acute events after the surgery. 10/01/2018-postop day 5. No postop complications. Patient is waiting for rehab placement. (2) COPD (chronic obstructive pulmonary disease) Qualifiers: COPD type: unspecified COPD Qualified Code(s): J44.9 - Chronic obstructive pulmonary disease, unspecified Is this a current diagnosis for this admission?: No Plan: 09/24/2018-patient has history of COPD not on home oxygen pulse ox is 93% on room air. Plan to restart her home medications including albuterol inhaler albuterol nebulizations. 09/25/[id number]-gim female with history of COPD not on home oxygen pulse ox is 92% on room air. Presently on albuterol inhaler, albuterol nebulizations. Plan is to continue the present management. 09/26/2018-patient has history of COPD pulse ox is 94% on room air. Stable. Plan is to continue all of her inhaler albuterol nebulizations. 09/27/2018 patient has history of COPD pulse ox is 96% on room air. 09/28/2018-oxygen 96% on 2 L. Chest examination bilaterally it was decreased no wheezing no crepitations. 09/30/2018-pulse ox is 98% on 2 L. Chest bilateral interval decrease no wheezing no crepitations. Plan is to continue the present management. 10/01/2018-pulse ox SR 92% room air. Patient is asymptomatic. On examination chest bilateral toes decreased no wheezing no crepitations. (3) HTN (hypertension) Is this a current diagnosis for this admission?: No Plan: 09/24/2018-patient has history of hypertension she is on atenolol 100 milligrams p.o. daily at home which was resumed during the hospital today. To start the patient on hydralazine 10 mg IV every 6 as needed. 09/25/2018-patient blood pressure today is 146/57 pressure is stable. Presently on atenolol 100 mg p.o. daily. plan is to continue the present management. 09/26/2018-patient blood pressure today is 184/66. Presently on atenolol 100 mg p.o. daily, plan is to closely monitor her blood pressure. 09/27/2018-patient's blood pressure today is 119/55. and heart rate of 62. Presently on atenolol 100 mg p.o. daily plan is to continue the present management. 09/28/2018-patient blood pressure is 111/56. With heart rate of 63. plan is to continue the present management. 09/29/2018-patient blood pressure today is 141/67. With the pulse rate of 67. Plan is to continue the present management. 09/30/2018 blood pressure today is 154/73. On atenolol 100 mg p.o. daily plan is to continue the present management. 10/01/2018-patient blood pressure today is 142/66. Stable. On atenolol 100 mg p.o. daily plan is to continue the present management. (4) Dementia Is this a current diagnosis for this admission?: No Plan: 09/24/2018-as per the family patient has a vascular dementia. Not on any demen tia medications at [facility]. Plan is to closely monitor her mental status during the hospital stay. 09/25/2018-patient has history of vascular dementia alert and awake communicating okay no signs of any anxiety and agitation. 09/27/2018-patient has history of vascular dementia patient alert awake communicating well today. 09/28/2018-patient has history of vascular dementia she is more confused and more agitated today. May be secondary to right cough pain. Daughter is bedside she thinks it is her mom's baseline. (5) History of stroke Is this a current diagnosis for this admission?: No (6) Constipation Is this a current diagnosis for this admission?: Yes Plan: 2018-patient does not have any bowel movement for the last several days. She is on MiraLAX, Dulcolax is not working. Plan to give mag citrate today hopefully it works. 10/01/2018-patient is on MiraLAX, Dulcolax and she received mag citrate yesterday without any success. He is going to try enema today. - Time Time Spent with patient: 15-24 minutes Medications reviewed and adjusted accordingly: Yes Anticipated discharge: Home
[2018-10-01] MEDS: SENNOSIDES/DOCUSATE 8.6-50 MG 1 EACH TABLET PO SCH (22:07)
[2018-10-01] MEDS: FLUTICASONE/VILANTEROL 200-25 MCG/DOSE IH SCH (22:07)
[2018-10-01] MEDS: MONTELUKAST SODIUM 10 MG TABLET PO SCH (22:07)
[2018-10-01] MEDS: CETIRIZINE 5 MG TABLET PO SCH (22:09)
[2018-10-02] MEDS: HYDRALAZINE HCL 10 MG TABLET PO SCH (05:54)
[2018-10-02] MEDS: PANTOPRAZOLE SODIUM 40 MG TABLET.DR PO SCH (05:55)
--- NOTE | 2018-10-02 07:08 | PDOC PROGRESS REPORT ---
Subjective Progress Note for:: 10/02/18 Reason For Visit: SUBCAPITAL FRACTURE OF HIP 82-year-old female now postop day 6 status post percutaneous fixation of a right femoral neck fracture. Limited progress with physical therapy. Physical Exam Vital Signs: Temp Pulse Resp BP Pulse Ox 36.6 C 68 16 176/72 H 93 10/02/18 00:06 10/02/18 04:58 10/02/18 00:06 10/02/18 04:58 10/02/18 04:19 Pulse Oximeter Continuous Start: 09/24/18 13:02 Freq: RTQ4 Status: Active Protocol: Document 10/02/18 04:19 [facility] (Rec: 10/02/18 06:28 [facility] [id number]) Pulse Oximetry Assessment Oxygen Saturation (92-100) 93 Oxygen Delivery Method Room Air Fraction of Inspired Oxygen (FIO2) 21 Equipment Usage Equipment in Use Continuous Pulse Oximeter 24 Hour Charge Charge Now Continuous SpO2 Machine # N1 Intake & Output 10/01/18 10/02/18 10/03/18 06:59 06:59 06:59 Intake Total 582 330 Balance 582 330 Weight 56.5 kg 56.6 kg General appearance: PRESENT: mild distress Head exam: PRESENT: normocephalic Musculoskeletal exam: PRESENT: other - Right lower extremity dressing clean dry and intact. Leg lengths equal. Results Laboratory Results: 10/01/18 08:25 10/01/18 08:25 10/01/18 10/01/18 08:25 08:25 WBC 8.9 RBC 3.77 Hgb 11.5 L Hct 33.3 L MCV 88 MCH 30.5 MCHC 34.5 RDW 14.8 H Plt Count 421 Seg Neutrophils % 64.2 Lymphocytes % 21.4 Monocytes % 10.3 Eosinophils % 3.2 Basophils % 0.9 Absolute Neutrophils 5.7 Absolute Lymphocytes 1.9 Absolute Monocytes 0.9 Absolute Eosinophils 0.3 Absolute Basophils 0.1 Sodium 135.5 L Potassium 4.5 Chloride 101 Carbon Dioxide 27 Anion Gap 8 BUN 20 Creatinine 0.61 Est GFR ( Amer) > 60 Est GFR (Non-Af Amer) > 60 Glucose 104 Calcium 9.8 Magnesium 2.2 Total Bilirubin 0.5 AST 22 ALT 20 Alkaline Phosphatase 105 Total Protein 6.1 L Albumin 3.4 L Impressions: Chest X-Ray 09/24/18 00:00 IMPRESSION: NO ACUTE RADIOGRAPHIC FINDING IN THE CHEST. Hip/Pelvis X-Ray 09/24/18 11:13 IMPRESSION: Subcapital fracture of the femoral neck. Fluoroscopy 09/26/18 00:00 IMPRESSION: IMAGE(S) OBTAINED DURING PROCEDURE. Hip X-Ray 09/26/18 00:00 IMPRESSION: IMAGE(S) OBTAINED DURING PROCEDURE. Venous Doppler Study 09/29/18 00:00 IMPRESSION: NO EVIDENCE DVT OR SVT IN EITHER LEG. Status: Imported from PACS Assessment & Plan - Diagnosis (1) Subcapital fracture of hip Qualifiers: Encounter type: initial encounter Fracture type: closed Laterality: right Qualified Code(s): S72.011A - Unspecified intracapsular fracture of right femur, initial encounter for closed fracture Is this a current diagnosis for this admission?: Yes Plan: Awaiting [facility] facility placement.
[2018-10-02] MEDS: ACETAMINOPHEN 325 MG TABLET PO PRN (08:47)
[2018-10-02] MEDS: POTASSIUM CHLORIDE 10 MEQ CAPSULE.ER PO SCH (11:29)
[2018-10-02] MEDS: POLYETHYLENE GLYCOL 3350 POWDER 17 GM/1 PACKET PO SCH (11:29)
[2018-10-02] MEDS: AMLODIPINE BESYLATE 10 MG TABLET PO SCH (11:32)
[2018-10-02] MEDS: ASPIRIN 81 MG TABLET, ENT COATED PO SCH (11:32)
[2018-10-02] MEDS: MULTIVITAMIN TABLET PO SCH (11:32)
[2018-10-02] MEDS: FAMOTIDINE 20 MG TABLET PO SCH (11:33)
[2018-10-02] MEDS: TIOTROPIUM BROMIDE DPI 5 CAP/KIT (18 MCG/CAP) IH SCH (11:34)
[2018-10-02] MEDS: ATENOLOL 50 MG TABLET PO SCH (11:34)
[2018-10-02] MEDS: DOCUSATE SODIUM 100 MG CAPSULE PO SCH ×2 (11:35→11:36)
--- NOTE | 2018-10-02 11:49 | Progress Note ---
Provider Note Provider Note: Patient is S/P pinning of hip fracture. Patient will need 30 days or less of inpatient rehab.
--- NOTE | 2018-10-02 12:59 | PDOC TRANSFER SUMMARY ---
General - Admit/Disc Date/PCP Admission Date/Primary Care Provider: 09/24/18 12:41 ONI HERNANDEZ MD Discharge Date: 10/02/18 - Discharge Diagnosis (1) Subcapital fracture of hip Is this a current diagnosis for this admission?: Yes (2) Dementia Is this a current diagnosis for this admission?: Yes (3) HTN (hypertension) Is this a current diagnosis for this admission?: Yes (4) History of stroke Is this a current diagnosis for this admission?: Yes (5) COPD (chronic obstructive pulmonary disease) Is this a current diagnosis for this admission?: Yes - Additional Information Resuscitation Status: Do Not Resuscitate Prescriptions: Aspirin [Ecotrin 81 mg EC Tablet] 81 mg PO DAILY #28 tabec Fluticasone/Vilanterol [Breo 200-25 Mcg Ellipta 14 Dose/Dpi] 1 inh IH QHS #1 inhaler Hydralazine HCl [Apresoline 10 mg Tablet] 20 mg PO Q8 #60 tablet Home Medications: Acetaminophen [Tylenol 325 mg Tablet] 650 mg PO Q6HP PRN 09/24/18 Albuterol Sulfate [Ventolin 0.042% Neb 1.25 mg/3 mL Ampul] 1.25 mg NEB RTQ4HP PRN 09/24/18 Amlodipine Besylate [Norvasc 10 mg Tablet] 10 mg PO DAILY 09/24/18 Atenolol [Tenormin 50 mg Tablet] 50 mg PO Q12 09/24/18 Docusate Sodium [Colace 100 mg Capsule] 200 mg PO Q12 09/24/18 Fluticasone/Salmeterol [Advair 250-50 Diskus 14 Dose/Diskus] 1 inh IH Q12 09/24/18 Pantoprazole Sodium [Protonix [address] Tablet] 40 mg PO Q6AM 09/24/18 Polyethylene Glycol 3350 [Miralax Powder 17 gm/Packet] 1 packet PO Q12 09/24/18 Potassium Chloride [Klor-Con M10] 10 meq PO DAILY 09/24/18 Sennosides [Senna] 17.2 mg PO QHS 09/24/18 Tramadol HCl [Ultram 50 mg Tablet] 50 mg PO Q6HP PRN 09/24/18 Umeclidinium [place] [Incruse Ellipta] 1 puff IH DAILY 09/24/18 Albuterol Sulfate [Proair HFA Inhalation Aerosol 8.5 gm MDI] 2 puff IH Q4HP PRN #0 hfa.[email or web address] 10/02/18 Aspirin [Ecotrin 81 mg EC Tablet] 81 mg PO DAILY #28 tabec 10/02/18 Fluticasone/Vilanterol [Breo 200-25 Mcg Ellipta 14 Dose/Dpi] 1 inh IH QHS #1 inhaler 10/02/18 Hydralazine HCl [Apresoline 10 mg Tablet] 20 mg PO Q8 #60 tablet 10/02/18 History of Present Illness Admission Date/PCP: 09/24/18 12:41 ONI HERNANDEZ MD History of Present Illness: Admitting hospitalist' H&P: LEE ANN KHAN is a 82 year old female history of dementia,, hemorrhagic stroke, COPD came to the emergency room after multiple falls. She was found on the floor yesterday by . brought to the emergency room for further evaluation found to have a hip fracture. ER physician Dr. Witt discussed the case with Dr. To he agreed to do the ortho consult , requested hospitalist services to do the medical consult for admission. Went to see the pt and talk to the daughter who is at bedside she confirmed the history that patient has difficulty in ambulating after the strokes and had a couple of falls at [facility]. the daughter found her mom on the floor yesterday and brought to the emergency room here for further evaluation. In the ER wotk up shows right subcapital fracture of the femoral neck. Discussed the plan of care with the daughter she agreed her mom to be in the hospital for possible surgery. Patient is a DNR/DNI as per the family members. Patient denies any pain at the time of admission. Hospital Course Hospital Course: This is an 82 year old female history of advanced dementia, hemorrhagic stroke, and COPD came to the emergency room after multiple falls. She is a DNR/DNI. She was found to have a right subcapital fracture of the femoral neck. Orthopedics was consulted and she underwent percutaneous fixation of the right femoral neck fracture on 09/26/18 which was uneventful. She was placed on aspirin for VTE prophylaxis post surgery per ortho recommendation. Her hospital course has otherwise been unremarkable. She is on her baseline mentation. She will be going to [place]. Physical Exam Vital Signs: Temp Pulse Resp BP Pulse Ox 97.5 F 64 17 178/77 H 94 10/02/18 08:00 10/02/18 08:00 10/02/18 08:00 10/02/18 08:00 10/02/18 08:00 Pulse Oximeter Continuous Start: 09/24/18 13:02 Freq: RTQ4 Status: Active Protocol: Document 10/02/18 07:45 [facility] (Rec: 10/02/18 09:36 [facility] [id number]) Pulse Oximetry Assessment Oxygen Saturation (92-100) 93 Oxygen Delivery Method Room Air Fraction of Inspired Oxygen (FIO2) 21 Equipment Usage Equipment in Use Continuous SpO2 Machine # N 1 Intake & Output 10/01/18 10/02/18 10/03/18 06:59 06:59 06:59 Intake Total 582 330 Balance 582 330 Weight 124 lb 8.979 oz 124 lb 12.506 oz General appearance: PRESENT: no acute distress, well-developed, well-nourished Head exam: PRESENT: atraumatic, normocephalic Eye exam: PRESENT: conjunctiva pink, EOMI, PERRLA. ABSENT: scleral icterus Ear exam: PRESENT: normal external ear exam Mouth exam: PRESENT: moist, tongue midline Neck exam: ABSENT: carotid bruit, JVD, lymphadenopathy, thyromegaly Respiratory exam: PRESENT: clear to auscultation evelyn. ABSENT: rales, rhonchi, wheezes Cardiovascular exam: PRESENT: RRR. ABSENT: diastolic murmur, rubs, systolic murmur Pulses: PRESENT: normal dorsalis pedis pul GI/Abdominal exam: PRESENT: normal bowel sounds, soft. ABSENT: distended, guarding, mass, organolmegaly, rebound, tenderness Rectal exam: PRESENT: deferred Neurological exam: PRESENT: awake, oriented to person, CN II-XII grossly intact. ABSENT: oriented to place, oriented to time, oriented to situation, motor sensory deficit Results Laboratory Results: 10/01/18 08:25 10/01/18 08:25 Impressions: Chest X-Ray 09/24/18 00:00 IMPRESSION: NO ACUTE RADIOGRAPHIC FINDING IN THE CHEST. Hip/Pelvis X-Ray 09/24/18 11:13 IMPRESSION: Subcapital fracture of the femoral neck. Fluoroscopy 09/26/18 00:00 IMPRESSION: IMAGE(S) OBTAINED DURING PROCEDURE. Hip X-Ray 09/26/18 00:00 IMPRESSION: IMAGE(S) OBTAINED DURING PROCEDURE. Venous Doppler Study 09/29/18 00:00 IMPRESSION: NO EVIDENCE DVT OR SVT IN EITHER LEG. Qualifiers - * PATIENT BEING DISCHARGED WITH ANY OF THE FOLLOWING DIAGNOSIS: No
[2018-10-02 14:06] VITALS: BP 157/68
--- NOTE | 2018-10-24 09:11 | Operative Report ---
Operative Report DATE OF SURGERY: 09/26/18 PREOPERATIVE DIAGNOSIS: Right subcapital valgus impacted femoral neck fracture OPERATION: Percutaneous pinning right femoral neck fracture SURGEON: JACQUIE HANDY ANESTHESIA: LMAC ESTIMATED BLOOD LOSS: Minimal PROCEDURE: With the patient supine on the fracture table the right lower extremity and hindquarter prepped and draped in sterile fashion. The fracture was identified to graphically. A single pin from the An titanium 6.5 mm cannulated screw set are placed through the greater trochanter and up into the femoral neck and head. A parallel pin guide was used to place 2 additional pins. Subsequently three 6.5 mm cannulated screws were advanced over the pins for appropriate depth. The pins were removed and the screw placement fracture reduction were assessed fluoroscopically and felt to be adequate. The screw insertion site is irrigated with bulb lavage and closure was interrupted Vicryl with debi. A sterile dressing was applied and the patient's return to PACU in satisfactory vision.
== END 2018-10-02 17:00 | DRG 482 ==
LOC: ER 10:54 → EH 12:41 → 4S 18:53
PROVIDERS: ADMIT Internal Medicine; ATTEND Internal Medicine
PROC: 0QS634Z Reposition Right Upper Femur with Internal Fixation Device, Percutaneous Approach (ICD-10-PCS; principal; 2018-09-26 10:15)
DX: S72.011A Unspecified intracapsular fracture of right femur, initial encounter for closed fracture (principal); W18.30XA Fall on same level, unspecified, initial encounter; I10 Essential (primary) hypertension; J44.9 Chronic obstructive pulmonary disease, unspecified; K59.00 Constipation, unspecified; F01.50 Vascular dementia, unspecified severity, without behavioral disturbance, psychotic disturbance, mood disturbance, and anxiety; K21.9 Gastro-esophageal reflux disease without esophagitis; Z66 Do not resuscitate; Z86.73 Personal history of transient ischemic attack (TIA), and cerebral infarction without residual deficits; Z79.899 Other long term (current) drug therapy; Z79.82 Long term (current) use of aspirin; Z90.710 Acquired absence of both cervix and uterus; Z87.891 Personal history of nicotine dependence; Z82.49 Family history of ischemic heart disease and other diseases of the circulatory system
CPT/HCPCS: 01220; 36415; 71045; 80048; 80053; 81001; 83735; 85025; 85027; 85610; 93005; 93010; 93970; 94762; 96374; 99285; C1713; C1769; J0690; J2250; J2270; J2405; J2704; J3010; J3490; J7030; J7120